=== PATIENT | male | born 1960 | race Caucasian/White ===

== ENCOUNTER 2017-08-06 13:11 | Inpatient (IN) | payer OTHER, SELFPAY ==
[2017-08-06 14:48] LABS: #Eosinphils 0.3 thou/uL (0.0-0.7); #Lymphocytes 1.1 thou/uL (1.20-3.40); #Monocytes 0.3 thou/uL (0.11-0.59); #Neutrophils 3.9 thou/uL (1.40-6.50); %Basophils 0.5 % (0.0-1.0); %Eosinophils 6.1 % (0.0-10.0); %Lymphocytes 19.6 % (21.0-51.0); %Monocytes 4.5 % (0.0-10.0); Hematocrit 30.7 % (42.0-52.0); Mean Platelet Volume 7.2 fL (7.4-10.4); White Blood Cell (WBC) Count 5.6 thou/uL (4.8-10.8)
[2017-08-06 15:11] LABS: ALT (SGPT) 14 U/L (8-55); AST (SGOT) 14 U/L (5-34); Alkaline Phosphatase 61 U/L (40-150); Anion Gap 13 mmol/L (10-20); BUN (Urea Nitrogen) 64 mg/dL (8.4-25.7); Bilirubin, Total 0.4 mg/dL (0.2-1.2); Calc. Creatinine Clearance 0 mL/min (70-130); Calcium 8.9 mg/dL (7.8-10.44); Carbon Dioxide 16 mmol/L (22-29); Chloride 111 mmol/L (98-107); Estimated GFR-MDRD 8; Globulin 3.5 g/dL (2.4-3.5); Protein, Total 6.4 g/dL (6.0-8.3)
--- NOTE | 2017-08-06 17:35 | RAD ---
CHEST 1 VIEW: Date: 08/06/17 COMPARISON: 11/28/16. HISTORY: Dialysis port placement. FINDINGS: Cardiomegaly. Lungs and pleural spaces are clear. No pneumothorax or osseous abnormalities. IMPRESSION: No acute cardiopulmonary process. POS: [facility]
--- NOTE | 2017-08-06 22:21 | CON ---
DATE OF CONSULTATION: 08/06/2017 NEPHROLOGY CONSULTATION REASON FOR CONSULTATION: Elevated creatinine. HISTORY OF PRESENT ILLNESS: This is a very pleasant 56-year-old gentleman, who presented to the [facility] with worsening renal failure. The patient had a creatinine of 2.3 on 11/13/2016, which has incr eased to 7.03 in July and 7.2 today. The patient denies no chest pain, orthopnea, or PND. The p atient was noted to have metabolic acidosis. PAST MEDICAL HISTORY: Significant for hypertension, anemia, diabetes mellitus, osteomyelitis, hernia surgery, knee surgery, ankle surgery. HOME MEDICATIONS: List reviewed. ALLERGIES: Reviewed. SOCIAL HISTORY: No alcohol or drug use. FAMILY HISTORY: Negative for ESRD. REVIEW OF SYSTEMS: A 15-point review of systems was performed and was negative except positives note d above. GENERAL: Weakness. HEAD: Headache. NECK: No swelling or lumps. NOSE: No epistaxis or discharge. EYES: No diplopia or pain. RESPIRATORY: Dyspnea. CARDIOVASCULAR: Chest pain. GASTR OINTESTINAL: Nausea. 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 MUSCULOSKELETAL: No joint pain. NEUROPSYCHIATIC SYSTEMS : No suicidal ideation. No ideation. SKIN: Denies any rash or ulcer. CONSTITUTIONAL: No fever o r chills. PHYSICAL EXAMINATION: GENERAL: Patient is awake, alert. VITAL SIGNS: Afebrile, pulse 75, breathing 16, blood pressure was 140/70. GENERAL APPEARANCE AND MENTAL STATUS: Fair. HEAD/NECK: Normocephalic. Atraumatic. EYES: EOMI. No deformity. EARS: Clear. No ulcers. NOSE: Intact. No lesions. MOUTH: Clear. No discharge. THROAT: Clear. No exudate. LUNGS: Clear. No crackles. CARDIAC: S1, S2. No rub. ABDOMEN: Benign. BS+. GENITALIA/RECTUM: Santamaria absent. BACK/EXTREMITIES: Edema 0+ ulcer. NEUROLOGICAL: Alert and motor intact. SKIN: Rash, bruise. LYMPHATICS: Edema, ulcer. LABORATORY: Creatinine 7.2, bicarbonate 16. ASSESSMENT AND RECOMMENDATIONS: 1. Acute kidney injury with chronic kidney disease, most likely end-stage renal disease. We will pl an dialysis tomorrow. 2. Anemia, stable. 3. Metabolic acidosis. Plan dialysis. 4. Anemia, start Epogen. Medications based on glomerular filtration rate are appropriate. We will plan for dialysis tomorrow.
[2017-08-06] MEDS ORDERED: Carvedilol 25 MG TAB PO SCH (22:30)
[2017-08-06] MEDS ORDERED: Amlodipine 5 MG TAB PO SCH (22:30)
[2017-08-06] MEDS ORDERED: hydrALAZINE 25 MG TAB PO SCH (22:30)
[2017-08-06] MEDS ORDERED: Acetaminophen 500 MG TAB ONE (22:40)
[2017-08-06] MEDS ORDERED: HYDROcodone/Acetaminophen 5/325 mg Tablet PO PRN (23:19)
[2017-08-06] MEDS ORDERED: Acetaminophen 325 MG TAB PO PRN (23:19)
--- NOTE | 2017-08-07 01:51 | HP ---
DATE OF ADMISSION: 08/06/2017 CHIEF COMPLAINT: Abnormal labs. HISTORY OF PRESENT ILLNESS: The patient is a 56-year-old male with past medical history of diabetes mellitus, type 2; hypertension; chronic kidney disease, stage 4 came to the ER due to worsening creat inine. The patient sees Dr. Osborne as an outpatient. Patient said he has on lower extremity swelli ng for the past few months and has on abdominal bloating also. Patient's creatinine was monitored as an outpatient, but the creatinine is getting worse, so patient was advised to come to the ER to init iate dialysis. Patient denies any chest pain, denies any trouble breathing, denies any cough, denies any sputum production, denies any nausea, denies any vomiting, denies any palpitations. Complains o f some intermittent dizziness. PAST MEDICAL HISTORY: As per HPI. PAST SURGICAL HISTORY: Bilateral knee surgery, right middle toe repair, hernia surgery. SOCIAL HISTORY: Denies smoking, denies alcohol, denies any illicit drugs. FAMILY HISTORY: Denies any heart problems. REVIEW OF SYSTEMS: Constitutional: Denies any fever, denies any chills. Positive for fatigue. Eye s: Denies any vision problem. Ears: Denies any hearing loss. Neck: Denies any neck pain. Cardio vascular System: Denies any chest pain. Respiratory System: Denies any cough, denies any sputum pr oduction. Gastrointestinal: Denies nausea, vomiting. Musculoskeletal: Positive for bilateral lowe r extremity swelling. Cranial nerve system: Positive for dizziness. Integument: Denies any rash. Psychiatric: Denies any depression, anxiety. All other review of systems are reviewed and are nega tive. PHYSICAL EXAMINATION: CONSTITUTIONAL/VITAL SIGNS: At the time of H&P performed, blood pressure is 130/70, afebrile, pulse ox 97% on room air. GENERAL: The patient appears comfortable. HEENT: Pupils equal, round, and reactive. Anterior nares patent. Nose normal. Ears normal. Teeth intact. Tongue is moist. NECK: Supple, no JVD. CARDIOVASCULAR SYSTEM: S1, S2 present. Regular rate and rhythm. No murmurs, no rubs, no gallops. RESPIRATORY SYSTEM: No wheezing, no rhonchi. Diminished at the bases. No accessory muscles seen. GASTROINTESTINAL: Abdomen is soft, distended, no guarding, no organomegaly, no masses felt. MUSCULOSKELETAL: Bilateral lower extremity, 3+ pitting edema present. CRANIAL NERVES SYSTEM: Cranial nerves intact. Follows commands. Strength intact, sensory intact. PSYCHIATRIC: Mood is appropriate at this time. INTEGUMENTARY: No rashes seen. LABORATORY DATA: At the time of H&P performed, sodium 135, potassium 4.8, chloride 111, CO2 of 16, B UN 64, creatinine is 7.21. White count 5.6, hemoglobin 10.3, platelet count is 212. Chest x-ray, no obvious infiltrates seen. ASSESSMENT AND PLAN: The patient is a 56-year-old male, 1. Chronic kidney disease, stage 4, now worsening creatinine. Plan to consult Nephrology to evaluat e the patient. Plan to keep patient n.p.o. after midnight for possible tunneled hemodialysis cathete r placement. We will monitor the patient closely. 2. Bilateral lower extremity edema. Plan to start patient on IV Lasix 60 q.12 hours. We will monit or creatinine closely with strict I's and O's. We will do bilateral lower extremity ultrasound to ru le out deep venous thrombosis. 3. History of hypertension, monitor blood pressures, continue home blood pressure medications. 4. Metabolic acidosis. Monitor bicarb closely. We will start patient on p.o. sodium bicarbonate. 5. Diabetes, type 2. Monitor blood sugars. We will do insulin-sliding scale. Case was discussed in detail with the patient at the bedside.
[2017-08-07] MEDS ORDERED: Heparin 5,000 UNITS/ML VIAL ONE ×2 (10:15→17:17)
--- NOTE | 2017-08-07 11:37 | ULT ---
BILATERAL UPPER EXTREMITY VASCULAR ULTRASOUND: Date: 08/07/17 HISTORY: 56-year-old male undergoing vascular assessment of the upper extremities for dialysis access planning . TECHNIQUE: Multiplanar Alaniz scale sonographic imaging of the vascular structures of bilateral upper extremities obtained with color flow and spectral analysis as detailed above. FINDINGS: The right internal jugular vein, subclavian vein, and axillary vein are patent. The left internal jug ular vein, subclavian vein, and axillary vein are patent. Bilateral cephalic and basilic veins are patent. VESSEL DIAMETER (mm) Right Brachial Artery 5.0 Right Radial Artery 2.4 Right Ulnar Artery 2.0 Left Brachial Artery 5.2 Left Radial Artery 2.6 Left Ulnar Artery 1.7 RIGHT CEPHALIC VEIN: Above Elbow Proximal 3.0 Above Elbow Mid 2.5 Above Elbow Distal 3.2 At Elbow 5.3 Below Elbow Proximal 2.7 Below Elbow Mid 2.9 Below Elbow Distal 1.4 RIGHT BASILIC VEIN: Above Elbow Proximal 3.9 Above Elbow Mid 4.5 Above Elbow Distal 3.9 At Elbow 3.0 Below Elbow Proximal 2.6 Below Elbow Mid 2.94 Below Elbow Distal 1.4 LEFT CEPHALIC VEIN: Above Elbow Proximal 3.2 Above Elbow Mid 2.8 Above Elbow Distal 2.7 At Elbow 3.1 Below Elbow Proximal 2.1 Below Elbow Mid 2.5 Below Elbow Distal 3.2 LEFT BASILIC VEIN: Above Elbow Proximal 1.1 Above Elbow Mid 3.2 Above Elbow Distal 3.0 At Elbow 2.5 Below Elbow Proximal 1.1 Below Elbow Mid 1.2 Below Elbow Distal 0.8 IMPRESSION: Vascular mapping of bilateral upper extremities as detailed above. POS: [facility]
--- NOTE | 2017-08-07 11:49 | PRG ---
DATE OF SERVICE: 08/07/2017 SUBJECTIVE: A 56-year-old gentleman being seen for end-stage renal disease. Patient denies any naus ea, vomiting or chest pain. PHYSICAL EXAMINATION: GENERAL: Patient is awake, alert. VITAL SIGNS: Afebrile, pulse 70, breathing at 16, blood pressure was 140/80. GENERAL APPEARANCE AND MENTAL STATUS: Fair. HEAD/NECK: Normocephalic. Atraumatic. EYES: EOMI. No deformity. EARS: Clear. No ulcers. NOSE: Intact. No lesions. MOUTH: Clear. No discharge. THROAT: Clear. No exudate. LUNGS: Clear. No crackles. CARDIAC: S1, S2. No rub. ABDOMEN: Benign. BS+. GENITALIA/RECTUM: Santamaria absent. BACK/EXTREMITIES: Lower extremities have 3+ edema. NEUROLOGICAL: Alert and motor intact. SKIN: Rash- Bruise- LYMPHATICS: Edema- Ulcer- ASSESSMENT AND RECOMMENDATIONS: 1. Stage 6 chronic kidney disease. We will plan dialysis. 2. Hypernatremia, stable. 3. Anemia, stable. 4. Metabolic acidosis. Plan dialysis. The patient will decide on PD versus hemo in the next few da ys. Today, he will get a tunneled catheter and dialysis will be initiated.
[2017-08-07] MEDS ORDERED: Nitroglycerin 2% Ointment 1 INCH/1 GM Packet ONE (12:18)
--- NOTE | 2017-08-07 12:51 | PDOC.PN ---
- Subjective Encounter Start Date: 08/07/17 Encounter Start Time: 10:40 Subjective: no chest pain, has sob -: is npo for HD cath today - Objective MAR Reviewed: Yes Result Diagrams: 08/06/17 14:23 08/06/17 14:23 Additional Labs: Accuchecks 08/07/17 12:29 POC Glucose 136 H Phys Exam - Physical Examination HEENT: PERRLA, moist MMs Neck: no JVD, supple Respiratory: no wheezing, no rales Cardiovascular: RRR, no significant murmur Gastrointestinal: soft, non-tender, positive bowel sounds Musculoskeletal: pulses present, edema present Neurological: non-focal, moves all 4 limbs Psychiatric: A&O x 3 Dx/Plan (1) ESRD (end stage renal disease) Code(s): N18.6 - END STAGE RENAL DISEASE Status: Acute Comment: will be initiated on HD (2) Metabolic acidosis Code(s): E87.2 - ACIDOSIS Status: Acute (3) H/O atrial flutter Code(s): Z86.79 - PERSONAL HISTORY OF OTHER DISEASES OF THE CIRCULATORY SYSTEM Status: Resolved (4) Chronic anemia Code(s): D64.9 - ANEMIA, UNSPECIFIED Status: Chronic (5) Anxiety and depression Code(s): F41.9 - ANXIETY DISORDER, UNSPECIFIED; F32.9 - MAJOR DEPRESSIVE DISORDER, SINGLE EPISODE, UNSPECIFIED Status: Chronic (6) Diabetes type 2, controlled Code(s): E11.9 - TYPE 2 DIABETES MELLITUS WITHOUT COMPLICATIONS Status: Chronic Qualifiers: Diabetes mellitus complication status: with unspecified complications Diabetes mellitus termite control representative insulin use: without fdc use Qualified Code( s): E11.8 - Type 2 diabetes mellitus with unspecified complications (7) Hypertension Code(s): I10 - ESSENTIAL (PRIMARY) HYPERTENSION Status: Chronic Qualifiers: Hypertension type: essential hypertension Qualified Code(s): I10 - Essential (primary) hypertension - Plan is on lasix 60mg q12h -: will be going for HD access shortly -: HD per nephrology advice -: had h/o LA thrombus which resolved in 2014, echo -: low alb sec to renal disease * . Review of Systems - Medications/Allergies Allergies/Adverse Reactions: Allergies Allergy/AdvReac Type Severity Reaction Status Date / Time No Known Allergies Allergy Verified 09/21/14 16:09 Medications: Current Medications Acetaminophen (Tylenol) 650 mg PO Q4H PRN PRN Reason: Headache/Fever or Pain Hydrocodone Bitart/Acetaminophen ([place] 5/325) 1 tab PO Q4H PRN PRN Reason: Moderate Pain (4-6) Furosemide (Lasix) 60 mg SLOW IVP 0600,1400 CANDI Heparin Sodium (Porcine) (Heparin) 5,000 units SC TID [facility] Ondansetron HCl (Zofran) 4 mg IVP Q6H PRN PRN Reason: Nausea/Vomiting
[2017-08-07] MEDS ORDERED: CEFAZOLIN/Water 2 GM/20 ML SYRINGE SLOW IVP SCH (13:15)
--- NOTE | 2017-08-07 14:12 | HP ---
HISTORY OF PRESENT ILLNESS: This is a 56-year-old male patient with longstanding diabetes and hypert ension followed by Dr. Osborne since November of this year. He had visited [facility] prior to thi s ER visit and discussed dialysis option and he is interested in a peritoneal dialysis. The patient presented of noting his deteriorating in renal function. Creatinine 7.2, GFR 8, carbon dioxide 16, s odium 135, hemoglobin 10.3. He has left hand IV ultrasound vein mapping reveal excellent veins in silviano th hands. 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 He lives in [place] . TOBACCO: None. ALCOHOL: None. ALLERGIES: None. MEDICATIONS: Apresoline 25 mg b.i.d., glyburide 5 mg a.m. with meals, Coreg 12.5 mg b.i.d., amlodipi ne 5 mg q.12 hours. PAST SURGICAL HISTORY: Right middle toe amputation, right knee surgery, right ankle surgery, left in guinal hernia repair as a child. He has never had a colonoscopy. PAST MEDICAL HISTORY: Hypertension, chronic kidney disease, diabetes mellitus, insulin-dependent typ e 2, probable history of CARMEL. He has had seen Dr. Elena in 2015. He had a cardiac ablation after treated for atrial thrombus. He had a ILDEFONSO that was normal subsequently. REVIEW OF SYSTEMS: Noncontributory otherwise. PHYSICAL EXAMINATION: VITAL SIGNS: 151 kilograms, 154/81, 61 16, 98.7 degrees. HEENT: Unremarkable. LUNGS: Clear to auscultation. CARDIAC: Regular rate and rhythm without murmur or gallop. ABDOMEN: Soft, nontender, no hernias evident. EXTREMITIES: Unremarkable. Good radial pulses. Good pedal pulses. ASSESSMENT AND PLAN: 1. End-stage renal disease. He need of dialysis access. I have discussed with him hemodialysis and peritoneal dialysis access. He desires peritoneal dialysis. We will plan laparoscopic peritoneal d ialysis catheter placement, possible omentopexy left arm primary fistula and hemodialysis catheter pl acement under general anesthesia. He understands the risks and benefits of surgery and consents. 2. Diabetes mellitus. 3. Hypertension. 4. End-stage renal disease.
[2017-08-07] MEDS ORDERED: Carvedilol 25 MG TAB PO SCH ×2 (15:45→21:00)
[2017-08-07 16:27] VITALS: BMI 32.1
[2017-08-07] MEDS ORDERED: CEFAZOLIN/Water 2 GM/20 ML SYRINGE ONE (16:42)
[2017-08-07] MEDS ORDERED: Propofol 200 MG/20 ML VIAL ONE (16:53)
[2017-08-07] MEDS ORDERED: Glycopyrrolate 0.2 MG/ML 5 ML SYRINGE ONE (16:53)
[2017-08-07] MEDS ORDERED: Ondansetron HCl/PF 4 MG/2 ML Vial ONE (16:53)
[2017-08-07] MEDS ORDERED: ePHEDrine/0.9% NaCl/PF SYRINGE 50 mg/10 ml ONE (16:53)
[2017-08-07] MEDS ORDERED: Lidocaine 1% PF 5 ML VIAL ONE (16:53)
[2017-08-07] MEDS ORDERED: Heparin 10,000 UNITS/ 10 ML VIAL ONE (16:53)
[2017-08-07] MEDS ORDERED: HumaLOG 300 UNITS/3 ML VIAL SC PRN (17:00)
[2017-08-07] MEDS ORDERED: FLU VACC QS2017-18 36 mo. & older 0.5 ML SYRINGE IM ONE (17:00)
[2017-08-07] MEDS ORDERED: Dextrose 50% Abboject 50 ML SYRINGE SLOW IVP PRN (17:00)
[2017-08-07] MEDS ORDERED: Dextrose 5% in Water 1,000 ML IV PRN (17:00)
[2017-08-07] MEDS ORDERED: Lidocaine 2% w/Epinephrine 1:200K 20 ML VIAL ONE (17:16)
[2017-08-07] MEDS ORDERED: Sodium Chloride 0.9% 0 ML ONE (17:17)
[2017-08-07] MEDS ORDERED: Bupivacaine/Epinephrine 0.25% 30 ML VIAL ONE (17:17)
[2017-08-07] MEDS ORDERED: Protamine Sulfate 250 MG/25 ML VIAL ONE (17:17)
[2017-08-07] MEDS ORDERED: Protamine Sulfate 50 MG/5 ML VIAL ONE (17:18)
[2017-08-07] MEDS ORDERED: Fentanyl 100 MCG/2 ML VIAL ONE ×2 (17:20→20:09)
[2017-08-07] MEDS: Furosemide 100 MG/10 ML VIAL SLOW IVP SCH (17:26)
[2017-08-07] MEDS: Heparin 5,000 UNITS/ML VIAL SC SCH ×2 (17:26→21:27)
[2017-08-07] MEDS ORDERED: Heparin 10,000 UNITS/1 ML VIAL ONE ×2 (18:11→18:53)
[2017-08-07] MEDS ORDERED: traMADol HCl 50 MG TAB PO PRN ×3 (19:57→21:05)
[2017-08-07] MEDS ORDERED: Acetaminophen 500 MG TAB PO PRN (19:57)
[2017-08-07] MEDS ORDERED: Ondansetron HCl/PF 4 MG/2 ML Vial IVP PRN (19:59)
[2017-08-07] MEDS ORDERED: Promethazine HCl 25 MG/ML VIAL SLOW IVP PRN (19:59)
[2017-08-07] MEDS ORDERED: Promethazine HCl 25 MG/ML VIAL IM PRN (19:59)
[2017-08-07] MEDS: Amlodipine 5 MG TAB PO SCH (21:58)
[2017-08-07] MEDS: hydrALAZINE 25 MG TAB PO SCH (21:59)
--- NOTE | 2017-08-07 22:40 | RAD ---
EXAM: ONE VIEW CHEST 08/07/17 COMPARISON: 08/06/17. HISTORY: Dialysis patient. Status post hemodialysis catheter placement and central line placement. FINDINGS: Interval placement of a left sided internal jugular central venous catheter with the distal tip proje cting over the right atrium. Interval placement of a right sided hemosplit dialysis catheter distal t ip projecting over the superior vena cava. No pneumothorax. Persistent cardiomegaly. Diminished lung volumes. Atelectasis in both lung bases. No pneumothorax. IMPRESSION: Lines as above. POS: [facility]
[2017-08-07] MEDS: traMADol HCl 50 MG TAB PO PRN (22:51)
[2017-08-08] MEDS: Acetaminophen 500 MG TAB PO PRN (02:11)
--- NOTE | 2017-08-08 02:32 | OP ---
DATE OF PROCEDURE: 08/07/2017 PREOPERATIVE DIAGNOSIS: End-stage renal disease. POSTOPERATIVE DIAGNOSIS: End-stage renal disease. PROCEDURES: Right IJ cuffed-tunnel hemodialysis catheter, angiodynamics precurved. Left internal ju gular vein central line triple-lumen. Ultrasound fluoroscopy used for placement of both. Laparoscop ic peritoneal dialysis catheter with omentopexy. Left Vivi fistula. Cephalic vein outflow calibra mana to a 3.5 mm coronary dilator. Radial arteriosclerotic, but patent. SURGEON: Dr. Tommy Fry ANESTHESIA: General. Local 0.25% Marcaine with epinephrine, 15 mL, mixed with 1% Xylocaine with epi nephrine, 30 mL. PROCEDURE IN DETAIL: Patient was taken to the operating room, where under general anesthesia, neck, chest, abdomen, and left upper extremity clipped of hair, prepared with chloraprep, draped in routine fashion. Local anesthetic mixture infiltrated into skin and subcutaneous tissue about all surgical sites. Using ultrasound guidance, the right and left internal jugular vein cannulated with trocar ca theter and J-wire threaded. Trocar catheter was removed. Skin incised and enlarged sharply at the J -wire entrance site and into skin of the neck. Stab incision made over the right chest infraclavicul ar laterally. Using the tunneling device, precurved angiodynamics cuffed-tunnel hemodialysis cathete r tunneled between the two incisions, placing the fabric cuff beneath the skin exit site on the right and bring the catheter out the incision next to the J-wire. Smaller and medium-sized dilators place d over the J-wire into the internal jugular vein removed. Dilator and pull-away sheath placed over t he J-wire in superior vena cava and dilator and J-wire removed. Catheter placed with pull-away sheat h and pull-away sheath removed. Platysma approximated with 4-0 Monocryl, skin with subdermal 4-0 Mon ocryl. Each port of the hemodialysis catheter aspirated blood, flushed with injectable saline, and h eparinized saline solution 1000 units heparin per mL indicated volume of the port. Dermabond and maye rile dressings applied. Catheter had been secured with 3-0 nylon suture and Biopatch applied. On the left side, Seldinger technique used to place a left internal jugular vein triple-lumen cathete r, removing the J-wire, securing the catheter with 2 interrupted sutures of 3-0 nylon. Biopatch ster ile dressing applied. Each port aspirated blood and flushed with saline solution. Sterile dressing applied. My gloves were changed. Local anesthetic infiltrated into skin and subcutaneous tissue about the ope rative site, about the laparoscopic peritoneal dialysis catheter is bilateral, far lateral subcostal incisions made and pneumoperitoneum was obtained with the Veress needle, replacing it with a 5 port. Video laparoscope inserted. Contralateral subcostal 5 mm port placed under laparoscopic visualizati on. An incision was made at the planned exit site in the left lower quadrant and a counter incision made above the umbilicus just paramedian and carried down through the skin and subcutaneous tissue an d 8 mm trocar catheter placed under laparoscopic visualization through the subcutaneous tissue direct caudally within the rectus sheath visualized laparoscopically, penetrating the abdominal wall inferi emily. The double cuffed pigtail peritoneal dialysis catheter placed through this port site and the i nternal cuff placed in the rectus sheath as the port was removed. A [place] dissector was then plac ed with the planned exit site slightly anterior and lateral to the counter incision in the left lower quadrant and brought out through a counterincision, grasping the catheter and pulled it through the tunnel, placing the external cuff beneath the skin exit site. Subcutaneous tissues approximated with 3-0 Monocryl, skin with subdermal 4-0 Monocryl. Catheter flushed with heparinized saline solution 1 000 units heparin per mL, 10 mL, and cap placed. Peritoneal dialysis catheter noted to be relied dep endently in the pelvis optimal position. Omentopexy undertaken as omentum was reached into the pelvi s, an 0 Vicryl suture using a GraNee needle transabdominal fixation sutures were applied fixing the o mentum to the upper abdomen. Pneumoperitoneum evacuated. All instruments removed and all skin incis ions approximated with interrupted subdermal 4-0 Monocryl and DermaGlue applied. Sterile dressings a pplied for the laparoscopic peritoneal dialysis catheter. Incision made in left wrist longitudinally between the radial artery and cephalic vein, carried down through the skin and subcutaneous tissue and the cephalic vein dissected free and stump on the hand s sheila ligated with 3-0 silk tie. It was mobilized dividing branch between 4-0 silk ties and clips. Ve in spatulated and interrogated with coronary dilators, passing coronary dilators from a 2 mm coronary dilator to a 3.5 mm coronary unobstructed throughout the length of the cephalic vein. Patient given 6000 units of heparin intravenously by Anesthesia. Radial artery dissected free. Small branches di vided between clips and 4-0 silk ties and vascular clamps controlled the radial artery proximally and distally. Longitudinal arteriotomy made sharply and elongated with the Mendez scissors and according ly the cephalic vein spatulated for the anastomosis, which was created with continuous suture of 6-0 Prolene, completing the anastomosis, releasing the vascular clamps noting good flow into the cephalic vein interrogated by Doppler with good outflow signals. The cephalic vein was dissected free, so th at it had a good lie and flaps dissected free laterally to accommodate this. Hemostasis ensured. Betancourt rgicel applied. Patient was given protamine 50 mg intravenously by Anesthesia. Good hemostasis note d. Subcutaneous tissues approximated with 3-0 Monocryl, skin with subdermal 4-0 Monocryl and DermaGl ue applied. The patient tolerated the procedure well.
[2017-08-08] MEDS: Ondansetron HCl/PF 4 MG/2 ML Vial IVP PRN ×3 (05:18→17:51)
[2017-08-08] MEDS: Furosemide 100 MG/10 ML VIAL SLOW IVP SCH ×2 (05:18→16:02)
[2017-08-08] MEDS: traMADol HCl 50 MG TAB PO PRN ×3 (05:18→21:02)
[2017-08-08 06:16] LABS: #Eosinphils 0.3 thou/uL (0.0-0.7); #Lymphocytes 1.2 thou/uL (1.20-3.40); #Monocytes 0.4 thou/uL (0.11-0.59); #Neutrophils 3.8 thou/uL (1.40-6.50); %Basophils 0.6 % (0.0-1.0); %Eosinophils 5.5 % (0.0-10.0); %Lymphocytes 21.2 % (21.0-51.0); Anion Gap 13 mmol/L (10-20); BUN (Urea Nitrogen) 65 mg/dL (8.4-25.7); Calc. Creatinine Clearance 17 mL/min (70-130); Carbon Dioxide 17 mmol/L (22-29); Chloride 112 mmol/L (98-107); Estimated GFR-MDRD 8; Hematocrit 28.4 % (42.0-52.0); Mean Platelet Volume 7.5 fL (7.4-10.4); Red Blood Cell (RBC) Count 2.91 mill/uL (4.70-6.10); White Blood Cell (WBC) Count 5.7 thou/uL (4.8-10.8)
[2017-08-08 06:17] LABS: ALT (SGPT) 12 U/L (8-55); AST (SGOT) 11 U/L (5-34); Alkaline Phosphatase 48 U/L (40-150); BUN/Creatinine Ratio 9.03; Bilirubin, Total 0.3 mg/dL (0.2-1.2); Calcium 8.6 mg/dL (7.8-10.44); Globulin 3.1 g/dL (2.4-3.5); Phosphorus 7.1 mg/dL (2.3-4.7); Protein, Total 5.5 g/dL (6.0-8.3)
[2017-08-08] MEDS ORDERED: Heparin 10,000 UNITS/ 10 ML VIAL ONE (07:18)
[2017-08-08] MEDS: Carvedilol 3.125 MG TAB PO SCH ×2 (08:02→17:51)
[2017-08-08] MEDS ORDERED: Polyethylene Glycol 3350 17 GM Packet PO SCH (09:00)
[2017-08-08] MEDS: hydrALAZINE 25 MG TAB PO SCH ×3 (09:05→20:58)
[2017-08-08] MEDS: Polyethylene Glycol 3350 17 GM Packet PO SCH (09:06)
[2017-08-08] MEDS: Heparin 5,000 UNITS/ML VIAL SC SCH ×3 (09:06→21:06)
[2017-08-08] MEDS: Amlodipine 5 MG TAB PO SCH ×2 (09:06→20:59)
--- NOTE | 2017-08-08 10:42 | PDOC.PN ---
- Subjective Encounter Start Date: 08/08/17 Encounter Start Time: 08:15 Subjective: no sob, has pain due to multiple procedures done yesterday - Objective MAR Reviewed: Yes Vital Signs & Weight: Vital Signs (12 hours) Temp Pulse Resp BP Pulse Ox 08/08/17 09:06 58 L 08/08/17 08:00 98.3 F 58 L 16 08/08/17 07:30 98.3 F 58 L 16 179/82 H 95 08/08/17 05:05 98.5 F 60 20 138/71 93 L 08/07/17 23:08 97.3 F L 52 L 16 164/82 H 93 L Weight Weight 230 lb 9 oz I&O: 08/07/17 08/08/17 08/09/17 06:59 06:59 06:59 Intake Total 488 Output Total 50 Balance 438 Result Diagrams: 08/08/17 05:20 08/08/17 05:20 Additional Labs: Accuchecks 08/08/17 08/07/17 08/07/17 05:26 21:13 12:29 POC Glucose 113 H 143 H 136 H Phys Exam - Physical Examination HEENT: PERRLA, moist MMs Neck: no JVD, supple has tunneled HD cath, central line Respiratory: no wheezing, no rales Cardiovascular: RRR, no significant murmur Gastrointestinal: soft, non-tender, positive bowel sounds PD cath+ Musculoskeletal: pulses present, edema present Neurological: non-focal, moves all 4 limbs left UE fistula+ Psychiatric: A&O x 3 Dx/Plan (1) ESRD (end stage renal disease) Code(s): N18.6 - END STAGE RENAL DISEASE Status: Acute Comment: will be initiated on HD (2) Metabolic acidosis Code(s): E87.2 - ACIDOSIS Status: Acute (3) H/O atrial flutter Code(s): Z86.79 - PERSONAL HISTORY OF OTHER DISEASES OF THE CIRCULATORY SYSTEM Status: Resolved (4) Chronic anemia Code(s): D64.9 - ANEMIA, UNSPECIFIED Status: Chronic (5) Anxiety and depression Code(s): F41.9 - ANXIETY DISORDER, UNSPECIFIED; F32.9 - MAJOR DEPRESSIVE DISORDER, SINGLE EPISODE, UNSPECIFIED Status: Chronic (6) Diabetes type 2, controlled Code(s): E11.9 - TYPE 2 DIABETES MELLITUS WITHOUT COMPLICATIONS Status: Chronic Qualifiers: Diabetes mellitus complication detail: with chronic kidney disease Diabetes mellitus group home insulin use: without group home use Chronic kidney disease stage: stage 5, not on chronic dialysis (7) Hypertension Code(s): I10 - ESSENTIAL (PRIMARY) HYPERTENSION Status: Chronic Qualifiers: Hypertension type: essential hypertension Qualified Code(s): I10 - Essential (primary) hypertension - Plan will optimize meds for htn, is bradycardic on current coreg dose -: to start HD per nephrology advice -: Had multiple access procedures done for dialysis -: reduce coreg to 3.125mg bid, on lasix 60mg q12h, hydralazine tid -: alb is 2.4 due to renal disease * . Review of Systems - Medications/Allergies Allergies/Adverse Reactions: Allergies Allergy/AdvReac Type Severity Reaction Status Date / Time No Known Allergies Allergy Verified 09/21/14 16:09 Medications: Current Medications Acetaminophen (Tylenol) 650 mg PO Q4H PRN PRN Reason: Headache/Fever or Pain Acetaminophen (Tylenol) 1,000 mg PO Q6H PRN PRN Reason: Moderate to Severe Pain (6-10) Last Admin: 08/08/17 02:11 Dose: 1,000 mg Amlodipine Besylate (Norvasc) 5 mg PO Q12HR [facility] Last Admin: 08/08/17 09:06 Dose: 5 mg Carvedilol (Coreg) 3.125 mg PO BID-[facility] Last Admin: 08/08/17 08:02 Dose: 3.125 mg Cefazolin Sodium (Ancef) 2 gm SLOW IVP WILLCALL [facility] Stop: 08/08/17 13:16 Dextrose/Water (Dextrose 50%) 25 gm SLOW IVP PRN PRN PRN Reason: Hypoglycemia Furosemide (Lasix) 60 mg SLOW IVP 0600,1400 [facility] Last Admin: 08/08/17 05:18 Dose: 60 mg Glucagon (Glucagon) 1 mg IM PRN PRN PRN Reason: Hypoglycemia Heparin Sodium (Porcine) (Heparin) 5,000 units SC TID [facility] Last Admin: 08/08/17 09:06 Dose: 5,000 units Hydralazine HCl (Apresoline) 50 mg PO TID [facility] Last Admin: 08/08/17 09:05 Dose: 50 mg Dextrose/Water (D5w) 1,000 mls @ 0 mls/hr IV .Q0M PRN; As Directed PRN Reason: Hypoglycemia Insulin Human Lispro (Humalog) 0 units SC .MODERATE SLIDING SC PRN PRN Reason: Moderate Correctional Scale Ondansetron HCl (Zofran) 4 mg IVP Q6H PRN PRN Reason: Nausea/Vomiting Last Admin: 08/08/17 05:18 Dose: 4 mg Polyethylene Glycol (Miralax) 17 gm PO DAILY [facility] Last Admin: 08/08/17 09:06 Dose: Not Given Tramadol HCl (Ultram) 50 mg PO Q6H PRN PRN Reason: Mild-Moderate Pain (1-5) Tramadol HCl (Ultram) 100 mg PO Q6H PRN PRN Reason: Moderate to Severe Pain (6-10) Last Admin: 08/08/17 05:18 Dose: 100 mg Tuberculin PPD (Aplisol) 0.1 ml I-DERMAL ASDIR [facility] Stop: 08/11/17 10:46
[2017-08-08] MEDS ORDERED: Tuberculin PPD 0.1 ML VIAL I-DERMAL SCH (10:45)
--- NOTE | 2017-08-08 12:10 | PRG ---
DATE OF SERVICE: 08/06/2017 SUBJECTIVE: A 56-year-old gentleman being seen for end-stage renal disease. The patient denies any nausea, vomiting or chest pain. PHYSICAL EXAMINATION: GENERAL: Patient is awake, alert. VITAL SIGNS: Afebrile, pulse 58, breathing at 16, blood pressure 138/71. HEAD/NECK: Normocephalic. Atraumatic. EYES: EOMI. No deformity. EARS: Clear. No ulcers. NOSE: Intact. No lesions. MOUTH: Clear. No discharge. THROAT: Clear. No exudate. LUNGS: Clear. No crackles. CARDIAC: S1, S2. No rub. ABDOMEN: Benign. BS+. GENITALIA/RECTUM: Santamaria absent. BACK/EXTREMITIES: Edema 0+ Ulcer- NEUROLOGICAL: Alert and motor intact. SKIN: Rash- Bruise- LYMPHATICS: Edema- Ulcer- LABORATORY DATA: Show hemoglobin 9.4, creatinine 7.2. ASSESSMENT AND RECOMMENDATIONS: 1. Stage 6 chronic kidney disease. Continue dialysis today. Access, the patient has a fistula as w ell as a tunneled dialysis catheter as well as a PD catheter. We will setup the patient for peritone al dialysis as an outpatient and continue hemodialysis. 2. Anemia, stable. 3. Medications based on glomerular filtration rate are appropriate.
[2017-08-08] MEDS ORDERED: Epoetin (ESRD) 10,000 UNITS/ML VIAL SC SCH (13:00)
--- NOTE | 2017-08-08 14:36 | PRG ---
DATE OF SERVICE: 08/08/2017 HISTORY OF PRESENT ILLNESS: Mr. Castillo is doing well after placement of right IJ cuffed tunnel hem odialysis catheter, left IJ central line, left wrist Vivi fistula, laparoscopic peritoneal dialysis catheter, and omentopexy. Patient's pain is well controlled on tramadol. He has a good thrill and bruit in his left Vivi fistula. Wound looks good. Abdomen is soft and nontender. The patient is doing well post-dialysis access surgery. I would recommend removal of his left IJ central line prior to discharge. We will leave that in for IV access and blood draws during this hospitalization to pr otect his veins. We would plan on leaving the dressing over his peritoneal dialysis catheter in his left lower abdomen. He may shower. We would ask him to make an appointment to [facility] peritoneal magaly lysis nurse as an outpatient 3-7 days postoperatively to change the dressing in his left lower abdome n and to start peritoneal dialysis training. Meanwhile leave the dressing on and he may shower. We would encourage him to exercise his left arm to encourage maturation of left Vivi fistula. The brian ient should follow up in my office in 3-6 weeks. Please call if needed.
[2017-08-09] MEDS: Acetaminophen 500 MG TAB PO PRN (00:52)
[2017-08-09] MEDS: Ondansetron HCl/PF 4 MG/2 ML Vial IVP PRN ×2 (00:52→06:15)
[2017-08-09] MEDS: Furosemide 100 MG/10 ML VIAL SLOW IVP SCH ×2 (06:14→15:28)
[2017-08-09] MEDS: Carvedilol 3.125 MG TAB PO SCH ×3 (11:25→17:27)
[2017-08-09] MEDS: Amlodipine 5 MG TAB PO SCH ×4 (11:25→20:54)
[2017-08-09] MEDS: Heparin 5,000 UNITS/ML VIAL SC SCH ×4 (11:25→20:55)
[2017-08-09] MEDS: Polyethylene Glycol 3350 17 GM Packet PO SCH (11:26)
[2017-08-09] MEDS: hydrALAZINE 25 MG TAB PO SCH ×4 (11:26→20:53)
[2017-08-09] MEDS ORDERED: Promethazine HCl 25 MG/ML VIAL SLOW IVP SCH (12:00)
[2017-08-09] MEDS ORDERED: Promethazine HCl 12.5 MG in Sodium Chloride 0.9% 50 ML IVPB SCH (12:30)
[2017-08-09 12:39] LABS: #Eosinphils 0.4 thou/uL (0.0-0.7); #Lymphocytes 1.1 thou/uL (1.20-3.40); #Monocytes 0.5 thou/uL (0.11-0.59); #Neutrophils 3.2 thou/uL (1.40-6.50); %Basophils 0.2 % (0.0-1.0); %Eosinophils 7.9 % (0.0-10.0); %Lymphocytes 20.5 % (21.0-51.0); %Monocytes 8.7 % (0.0-10.0); Hematocrit 31.6 % (42.0-52.0); Mean Platelet Volume 7.1 fL (7.4-10.4); Red Blood Cell (RBC) Count 3.28 mill/uL (4.70-6.10); White Blood Cell (WBC) Count 5.2 thou/uL (4.8-10.8)
--- NOTE | 2017-08-09 12:44 | PDOC.PN ---
- Subjective Encounter Start Date: 08/09/17 Encounter Start Time: 09:30 Subjective: c/o nausea, no sob -: getting HD - Objective MAR Reviewed: Yes Vital Signs & Weight: Vital Signs (12 hours) Temp Pulse Resp BP Pulse Ox 08/09/17 12:30 65 08/09/17 12:23 62 08/09/17 12:00 97.6 F 65 16 205/90 H 96 08/09/17 08:00 98.3 F 62 18 92 L 08/09/17 06:48 98.3 F 62 18 119/65 92 L Weight Weight 230 lb 9 oz I&O: 08/08/17 08/09/17 08/10/17 06:59 06:59 06:59 Intake Total 488 Output Total 50 175 Balance 438 -175 Result Diagrams: 08/09/17 12:25 08/08/17 05:20 Additional Labs: Accuchecks 08/09/17 08/09/17 08/08/17 06:06 00:29 17:59 POC Glucose 126 H 111 H 105 Phys Exam - Physical Examination HEENT: PERRLA, moist MMs Neck: no JVD, supple Respiratory: no wheezing, no rales Cardiovascular: RRR, no significant murmur Gastrointestinal: soft, non-tender, positive bowel sounds PD cath+ Musculoskeletal: no edema, pulses present Neurological: non-focal, moves all 4 limbs Psychiatric: A&O x 3 Dx/Plan (1) ESRD (end stage renal disease) Code(s): N18.6 - END STAGE RENAL DISEASE Status: Acute Comment: initiated on HD (2) Metabolic acidosis Code(s): E87.2 - ACIDOSIS Status: Acute (3) H/O atrial flutter Code(s): Z86.79 - PERSONAL HISTORY OF OTHER DISEASES OF THE CIRCULATORY SYSTEM Status: Resolved (4) Chronic anemia Code(s): D64.9 - ANEMIA, UNSPECIFIED Status: Chronic (5) Anxiety and depression Code(s): F41.9 - ANXIETY DISORDER, UNSPECIFIED; F32.9 - MAJOR DEPRESSIVE DISORDER, SINGLE EPISODE, UNSPECIFIED Status: Chronic (6) Diabetes type 2, controlled Code(s): E11.9 - TYPE 2 DIABETES MELLITUS WITHOUT COMPLICATIONS Status: Chronic Qualifiers: Diabetes mellitus complication detail: with chronic kidney disease Diabetes mellitus senior care insulin use: without intermediate project manager use Chronic kidney disease stage: stage 5, not on chronic dialysis (7) Hypertension Code(s): I10 - ESSENTIAL (PRIMARY) HYPERTENSION Status: Chronic Qualifiers: Hypertension type: essential hypertension Qualified Code(s): I10 - Essential (primary) hypertension - Plan tolerating HD, had his 2nd session today -: awaiting outpt HD chair, is on coreg, hydralazine and norvasc -: will have outpt coaching sessions for PD education -: one dose phenergan to see his nausea resolve -: dc plan per nephro/gen surg advice * . Review of Systems - Medications/Allergies Allergies/Adverse Reactions: Allergies Allergy/AdvReac Type Severity Reaction Status Date / Time No Known Allergies Allergy Verified 09/21/14 16:09 Medications: Current Medications Acetaminophen (Tylenol) 650 mg PO Q4H PRN PRN Reason: Headache/Fever or Pain Acetaminophen (Tylenol) 1,000 mg PO Q6H PRN PRN Reason: Moderate to Severe Pain (6-10) Last Admin: 08/09/17 00:52 Dose: 1,000 mg Amlodipine Besylate (Norvasc) 5 mg PO Q12HR [facility] Last Admin: 08/09/17 12:30 Dose: Not Given Carvedilol (Coreg) 3.125 mg PO BID-WM [facility] Last Admin: 08/09/17 12:28 Dose: 3.125 mg Dextrose/Water (Dextrose 50%) 25 gm SLOW IVP PRN PRN PRN Reason: Hypoglycemia Epoetin Lakhwinder (Procrit) 10,000 units SC Q7D [facility] Last Admin: 08/08/17 12:51 Dose: 10,000 units Furosemide (Lasix) 60 mg SLOW IVP 0600,1400 [facility] Last Admin: 08/09/17 06:14 Dose: 60 mg Glucagon (Glucagon) 1 mg IM PRN PRN PRN Reason: Hypoglycemia Heparin Sodium (Porcine) (Heparin) 5,000 units SC TID [facility] Last Admin: 08/09/17 11:27 Dose: Not Given Hydralazine HCl (Apresoline) 50 mg PO TID [facility] Last Admin: 08/09/17 12:23 Dose: 50 mg Dextrose/Water (D5w) 1,000 mls @ 0 mls/hr IV .Q0M PRN; As Directed PRN Reason: Hypoglycemia Promethazine HCl 12.5 mg/ (Sodium Chloride) 50.5 mls @ 151.5 mls/hr IVPB NOW [facility] Stop: 08/09/17 14:30 Ondansetron HCl (Zofran) 4 mg IVP Q6H PRN PRN Reason: Nausea/Vomiting Last Admin: 08/09/17 06:15 Dose: 4 mg Polyethylene Glycol (Miralax) 17 gm PO DAILY [facility] Last Admin: 08/09/17 11:26 Dose: Not Given Tramadol HCl (Ultram) 50 mg PO Q6H PRN PRN Reason: Mild-Moderate Pain (1-5) Tramadol HCl (Ultram) 100 mg PO Q6H PRN PRN Reason: Moderate to Severe Pain (6-10) Last Admin: 08/08/17 21:02 Dose: 100 mg Tuberculin PPD (Aplisol) 0.1 ml I-DERMAL ASDIR [facility] Stop: 08/11/17 10:46
[2017-08-09 13:00] LABS: Anion Gap 15 mmol/L (10-20); BUN (Urea Nitrogen) 33 mg/dL (8.4-25.7); Calc. Creatinine Clearance 26 mL/min (70-130); Calcium 8.9 mg/dL (7.8-10.44); Carbon Dioxide 25 mmol/L (22-29); Chloride 103 mmol/L (98-107); Estimated GFR-MDRD 13
--- NOTE | 2017-08-09 13:52 | PRG ---
DATE OF SERVICE: 08/09/2017 SUBJECTIVE: A 56-year-old gentleman with a history of end-stage renal disease, complaints of nausea, vomiting, and left-sided abdominal pain. The patient denies fever or chills. PHYSICAL EXAMINATION: GENERAL: The patient is awake, alert. VITAL SIGNS: Afebrile, pulse 62, breathing at 16, blood pressure 119/65 GENERAL APPEARANCE AND MENTAL STATUS: Fair. HEAD/NECK: Normocephalic. Atraumatic. EYES: EOMI. No deformity. EARS: Clear. No ulcers. NOSE: Intact. No lesions. MOUTH: Clear. No discharge. THROAT: Clear. No exudate. LUNGS: Clear. No crackles. CARDIAC: S1, S2. No rub. ABDOMEN: Shows no tenderness or guarding on the right side, mild tenderness on the left side. No guarding or rigidity. Bowel sounds are positive. GENITALIA/RECTUM: Santamaria absent. BACK/EXTREMITIES: Edema 0+ Ulcer- NEUROLOGICAL: Alert and motor intact. SKIN: Rash- Bruise- LYMPHATICS: Edema- Ulcer- LABORATORY DATA: Hemoglobin 9.4, potassium 4.6. ASSESSMENT AND RECOMMENDATIONS: 1. Stage 6 chronic kidney disease. The patient had hemodialysis today. Abdominal pain. Consult surgery. We will recheck labs today. 2. Anemia, stable. 3. Metabolic acidosis, stable. 4. Hyperkalemia, stable. Discharge planning is in progress. [facility]
[2017-08-09] MEDS: traMADol HCl 50 MG TAB PO PRN (23:27)
[2017-08-10] MEDS: Acetaminophen 500 MG TAB PO PRN (05:52)
[2017-08-10] MEDS: Furosemide 100 MG/10 ML VIAL SLOW IVP SCH (05:55)
[2017-08-10 06:43] LABS: ALT (SGPT) Less than 7 U/L (8-55); AST (SGOT) 13 U/L (5-34); Alkaline Phosphatase 55 U/L (40-150); Anion Gap 15 mmol/L (10-20); BUN (Urea Nitrogen) 40 mg/dL (8.4-25.7); Bilirubin, Total 0.3 mg/dL (0.2-1.2); Calc. Creatinine Clearance 21 mL/min (70-130); Calcium 8.4 mg/dL (7.8-10.44); Carbon Dioxide 25 mmol/L (22-29); Chloride 100 mmol/L (98-107); Estimated GFR-MDRD 11; Globulin 3.3 g/dL (2.4-3.5); Lipase 13 U/L (8-78); Protein, Total 5.8 g/dL (6.0-8.3)
[2017-08-10 06:51] LABS: #Eosinphils 0.6 thou/uL (0.0-0.7); #Lymphocytes 1.3 thou/uL (1.20-3.40); #Monocytes 0.4 thou/uL (0.11-0.59); #Neutrophils 3.6 thou/uL (1.40-6.50); %Basophils 0.6 % (0.0-1.0); %Eosinophils 10.3 % (0.0-10.0); %Lymphocytes 22.4 % (21.0-51.0); %Monocytes 7.3 % (0.0-10.0); Hematocrit 31.2 % (42.0-52.0); Mean Platelet Volume 7.4 fL (7.4-10.4); Red Blood Cell (RBC) Count 3.21 mill/uL (4.70-6.10)
[2017-08-10] MEDS: Heparin 5,000 UNITS/ML VIAL SC SCH (08:36)
[2017-08-10] MEDS: Polyethylene Glycol 3350 17 GM Packet PO SCH (08:36)
[2017-08-10] MEDS: Amlodipine 5 MG TAB PO SCH (08:37)
[2017-08-10] MEDS: hydrALAZINE 25 MG TAB PO SCH (08:37)
[2017-08-10] MEDS: Carvedilol 3.125 MG TAB PO SCH (08:37)
[2017-08-10 08:43] VITALS: BP 170/77; TEMP 98.1
[2017-08-10] MEDS ORDERED: Lisinopril 5 MG TAB PO SCH (09:45)
[2017-08-10] MEDS ORDERED: Lisinopril 10 MG TAB PO SCH (09:45)
--- NOTE | 2017-08-10 19:42 | PRG ---
DATE OF SERVICE: 08/10/2017 SUBJECTIVE: This 56-year-old gentleman being seen for end-stage renal disease. The patient denies a ny nausea, vomiting or chest pain. PHYSICAL EXAMINATION: GENERAL: Patient is awake, alert. VITAL SIGNS: Afebrile, pulse 60, breathing at 16, blood pressure 117/77. GENERAL APPEARANCE AND MENTAL STATUS: Fair. HEAD/NECK: Normocephalic. Atraumatic. EYES: EOMI. No deformity. EARS: Clear. No ulcers. NOSE: Intact. No lesions. MOUTH: Clear. No discharge. THROAT: Clear. No exudate. LUNGS: Clear. No crackles. CARDIAC: S1, S2. No rub. ABDOMEN: Benign. BS+. GENITALIA/RECTUM: Santamaria absent. BACK/EXTREMITIES: Edema 0+ Ulcer- NEUROLOGICAL: Alert and motor intact. SKIN: Rash- Bruise- LYMPHATICS: Edema- Ulcer- LABORATORY: Hemoglobin 9.9. ASSESSMENT AND RECOMMENDATIONS: 1. Stage 6 chronic kidney disease, continue hemodialysis. 2. Hypertension, stable. 3. Anemia, stable. 4. Medications based on GFR are appropriate.
--- NOTE | 2017-08-10 20:30 | DIS ---
DATE OF ADMISSION: 08/06/2017 DATE OF DISCHARGE: 08/10/2017 CONDITION AT THE TIME OF DISCHARGE: Stable and improved. DISCHARGE DIAGNOSES: 1. Acute on chronic kidney disease with worsening renal function, status post initiation of hemodial ysis. 2. Metabolic acidosis secondary to #1. 3. History of atrial flutter. 4. Chronic anemia of chronic kidney disease. 5. Anxiety and depression. 6. Type 2 diabetes mellitus. 7. Hypertension. DISCHARGE MEDICATIONS: Lasix 40 mg daily, lisinopril 5 mg daily, Coreg 3.125 mg p.o. b.i.d., minoxid il 10 mg b.i.d., hydralazine 50 mg b.i.d., Norvasc 5 mg p.o. b.i.d., tramadol as needed for pain and Tylenol as needed for pain, hydralazine 50 mg p.o. t.i.d. PRIMARY CARE PHYSICIAN: Rik Calderon M.D. PRIMARY RATING EXAMINER: Dr. Bonds. PROCEDURES IN THE HOSPITAL: Include, 1. Placement and removal of the left IJ central line. 2. Placement of a right IJ tunneled hemodialysis catheter. 3. Left wrist fistula. 4. PD catheter placement. CONSULTATION INHOUSE: Include, 1. Nephrology. 2. General Surgery, Dr. Fry. HISTORY OF PRESENT ILLNESS: Mr. 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 He has also noticed abdomi nal swelling and lower extremity swelling. He was sent to the emergency room to get admitted for ini tiation of dialysis. He was otherwise hemodynamically stable upon presentation. Please see admissio n history and physical for further details. Nephrology and Neurosurgery was consulted. He was start ed on IV Lasix b.i.d. for bilateral lower extremity swelling as he still make some urine. He was fou nd to have metabolic acidosis due to acute on chronic renal insufficiency. His creatinine was 7.21 w ith GFR of 8 upon presentation. HOSPITAL COURSE: He was seen by Dr. Fry and underwent a marking ultrasound and eventual placement of a left wrist fistula along with the PD catheter and right IJ tunneled catheter. I attempted his left IJ central line was done for access. He was initiated on hemodialysis and tolerated the procedu re very well. He was also followed up by his box finisher, Dr. Bonds in house. Eventually hemodialys is chair was arranged for him as an outpatient and he was discharged home with plans for outpatient d ialysis for now with the possibility of peritoneal dialysis to be started at a later date. He was seen and examined prior to discharge. PHYSICAL EXAMINATION: Include, VITAL SIGNS: Temperature 98.1, pulse of 66, blood pressure 170/77, respirations 18, saturating 96% o n room air. GENERAL: No acute distress. Awake and alert, oriented x3. CHEST: Clear to auscultation without any wheezing, rales or rhonchi. Rate and rhythm is regular wit hout any murmur, rubs, or gallops. EXTREMITIES: Some bilateral lower extremity swelling remains. LABORATORY DATA: Serum chemistries; CBC shows hemoglobin of 9.9 with hematocrit of 31.2. Serum chem istries show GFR is improved to 11 with creatinine of 5.60, BUN 40. Hepatitis panel was negative. Because of persistent hypertension and chronic kidney disease: He was started on OMER inhibitors. He was provided prescription for the new medications. At this time, the patient is not started any pot assium supplements, but would follow up with every other day renal function and electrolyte managemen t as per the dialysis.
[2017-08-11] MEDS ORDERED: Lisinopril 5 MG TAB PO SCH (09:00)
[2017-08-11] MEDS ORDERED: Furosemide 100 MG/10 ML VIAL SLOW IVP SCH (09:00)
== END 2017-08-10 14:09 | disposition home or self-care (01) | DRG 673 ==
LOC: ERS 13:11 → ERHOLD 18:05 → OBSVTOIN 18:05 → 2SW 08-07 14:59 → T4-A 08-08 16:29
PROVIDERS: ADMIT Internal Medicine; ATTEND Internal Medicine
PROC: 02HV33Z Insertion of Infusion Device into Superior Vena Cava, Percutaneous Approach (ICD-10-PCS; principal; 2017-08-07)
PROC: 0WHG43Z Insertion of Infusion Device into Peritoneal Cavity, Percutaneous Endoscopic Approach (ICD-10-PCS; 2017-08-07)
PROC: 031C09F Bypass Left Radial Artery to Lower Arm Vein with Autologous Venous Tissue, Open Approach (ICD-10-PCS; 2017-08-07)
PROC: 0DUU4JZ Supplement Omentum with Synthetic Substitute, Percutaneous Endoscopic Approach (ICD-10-PCS; 2017-08-07)
PROC: B5181ZA Fluoroscopy of Superior Vena Cava using Low Osmolar Contrast, Guidance (ICD-10-PCS; 2017-08-07)
PROC: 02H633Z Insertion of Infusion Device into Right Atrium, Percutaneous Approach (ICD-10-PCS; 2017-08-07)
PROC: B2141ZZ Fluoroscopy of Right Heart using Low Osmolar Contrast (ICD-10-PCS; 2017-08-07)
PROC: 5A1D70Z Performance of Urinary Filtration, Intermittent, Less than 6 Hours Per Day (ICD-10-PCS; 2017-08-08)
DX: I12.0 Hypertensive chronic kidney disease with stage 5 chronic kidney disease or end stage renal disease (principal); N18.6 End stage renal disease; N17.9 Acute kidney failure, unspecified; E87.0 Hyperosmolality and hypernatremia; E87.2 Acidosis; I48.92 Unspecified atrial flutter; E11.22 Type 2 diabetes mellitus with diabetic chronic kidney disease; Z79.84 Long term (current) use of oral hypoglycemic drugs; Z89.421 Acquired absence of other right toe(s); D63.1 Anemia in chronic kidney disease; E87.5 Hyperkalemia; F41.9 Anxiety disorder, unspecified; F32.9 Major depressive disorder, single episode, unspecified
CPT/HCPCS: 36415; 36416; 71010; 80048; 80053; 80069; 83690; 85025; 86580; 86704; 86706; 86803; 87340; 90935; 93005; 93970; 96372; A4216; C1752; C1769; G0257; G0365; J1644; J1940; J2001; J2405; J2550; J2704; J2720; J3010; J7050; Q4081

== ENCOUNTER → 2017-08-24 | Day surgery (SDC) | payer OTHER ==
--- NOTE | 2017-08-23 14:53 | HP ---
HISTORY OF PRESENT ILLNESS: Giovanni Castillo is a 56-year-old male patient, recently presented requ esting peritoneal dialysis access, hemodialysis access. He is followed by Dr. Osborne. The patient underwent right IJ cuffed tunnel dialysis catheter, laparoscopic peritoneal dialysis catheter with om entopexy, and left Vivi fistula outflow 3.5 mm coronary dilator on 08/07/2017. Radial artery was ar teriosclerotic. He presented to my office today and this Vivi fistula is well-developed and ready for access in the first part of September. He, however, does not want anything to do with peritoneal d ialysis after some discussion ensuring and that he has decided with certainty he does not want to do peritoneal dialysis. Plan is to remove his peritoneal dialysis catheter tomorrow under IV sedation a nd local anesthesia. He understands the risks and benefits and consents. He dialyzes at [facility] Sunday, Sunday, and Sunday at 4:00 p.m. He is followed by Dr. Osborne. PAST MEDICAL HISTORY: End-stage renal disease, diabetes mellitus, hypertension, probable history of CARMEL without prior testing. TOBACCO: None. ALCOHOL: None. ALLERGIES: None. PAST SURGICAL HISTORY: Right middle toe amputation, right knee surgery, right ankle surgery, left in guinal hernia repair as a child, never having had a colonoscopy. Cardiac ablation for atrial thrombu s, ILDEFONSO that was normal subsequently. REVIEW OF SYSTEMS: Ten-point noncontributory. PHYSICAL EXAMINATION: VITAL SIGNS: 215 pounds, 71 inches, 156/73, 57, 99.1 degrees. LUNGS: Clear to auscultation. CARDIAC: Regular rate and rhythm without murmur or gallop. ABDOMEN: Soft. Peritoneal dialysis catheter in place with . It is well fixed and I cannot rem ove it without sedation, local, outpatient. Left Vivi fistula, good thrill and bruit, well formed throughout the forearm. Hemodialysis catheter, right IJ. ASSESSMENT AND PLAN: End-stage renal disease, dialyzes at [facility] Sunday, Sunday, and Sunday at 4: [address] Osborne plan removal of his PD catheter. Plan to have him started accessing his left Ci arthur fistula on September 05 and return to see me in September and hopefully remove his hemodialysis cat heter.
[2017-08-23 15:19] VITALS: BMI 29.2
[~2017-08-24] MED LIST: Bupivacaine/Epinephrine 0.25% 30 ML VIAL ONE; CEFAZOLIN/Water 2 GM/20 ML SYRINGE ONE; Fentanyl 100 MCG/2 ML VIAL ONE; Heparin 10,000 UNITS/ 10 ML VIAL ONE; Lidocaine 2% PF 5 ML VIAL ONE
[2017-08-24 07:41] LABS: #Basophils 0.1 thou/uL (0.0-0.2); #Eosinphils 0.6 thou/uL (0.0-0.7); #Lymphocytes 1.3 thou/uL (1.20-3.40); #Monocytes 0.5 thou/uL (0.11-0.59); #Neutrophils 4.2 thou/uL (1.40-6.50); %Eosinophils 8.6 % (0.0-10.0); %Lymphocytes 19.7 % (21.0-51.0); %Monocytes 7.3 % (0.0-10.0); Hematocrit 31.6 % (42.0-52.0); Red Blood Cell (RBC) Count 3.24 mill/uL (4.70-6.10); White Blood Cell (WBC) Count 6.6 thou/uL (4.8-10.8)
[2017-08-24 07:55] LABS: Anion Gap 15 mmol/L (10-20); BUN (Urea Nitrogen) 34 mg/dL (8.4-25.7); Calc. Creatinine Clearance 20 mL/min (70-130); Calcium 9.3 mg/dL (7.8-10.44); Carbon Dioxide 28 mmol/L (22-29); Chloride 98 mmol/L (98-107); Estimated GFR-MDRD 11
--- NOTE | 2017-08-24 08:53 | OP ---
DATE OF PROCEDURE: 08/24/2017 PREOPERATIVE DIAGNOSES: End-stage renal disease, maturing left Vivi fistula, hemodialysis catheter dependent, peritoneal dialysis catheter present and the patient does not want it. POSTOPERATIVE DIAGNOSES: End-stage renal disease, maturing left Vivi fistula, hemodialysis cathete r dependent, peritoneal dialysis catheter present and the patient does not want it. PROCEDURE: Removal of peritoneal dialysis catheters. SURGEON: Dr. Tommy Fry ANESTHESIA: LMA, general, local 0.25% Marcaine with epinephrine, 30 mL, mixed with 2% Xylocaine, 10 mL. PROCEDURE IN DETAIL: The patient taken to the operating room where under LMA general anesthesia, abd omen and PD catheter prepared with ChloraPrep, draped in routine fashion. Catheter and cuff dissecte d free, removed after anesthetizing it with local anesthetic. Gauze dressing applied. The patient t olerated the procedure well.
== END ==
LOC: SDC 07:15
PROVIDERS: ATTEND Specialist
PROC: 0WPG33Z Removal of Infusion Device from Peritoneal Cavity, Percutaneous Approach (ICD-10-PCS; principal; 2017-08-24)
DX: E11.22 Type 2 diabetes mellitus with diabetic chronic kidney disease (principal); I12.0 Hypertensive chronic kidney disease with stage 5 chronic kidney disease or end stage renal disease; N18.6 End stage renal disease; Z79.899 Other long term (current) drug therapy; Z99.2 Dependence on renal dialysis; Z89.421 Acquired absence of other right toe(s); Z98.890 Other specified postprocedural states
CPT/HCPCS: 80048; 85025; J1644; J2001; J3010

== ENCOUNTER 2018-07-19 12:46 | Inpatient (IN) | payer MEDICARE ==
[2018-07-19 13:32] LABS: INR-International Normal Ratio 1.4; PTT 31.4 SEC (22.9-36.1); Prothrombin Time 17.1 SEC (12.0-14.7)
[2018-07-19 13:34] LABS: Hemoglobin 12.2 g/dL (14.0-18.0); Mean Corpuscular HGB CONC 32.3 g/dL (32.0-36.0); Mean Corpuscular Hemoglobin 32.2 pg (27.0-31.0); Mean Corpuscular Volume 99.7 fL (78.0-98.0); Mean Platelet Volume 8.9 fL (7.4-10.4); Platelet Count 202 thou/uL (130-400); RBC Distribution Width 12.9 % (11.5-14.5); Red Blood Cell (RBC) Count 3.79 mill/uL (4.70-6.10); White Blood Cell (WBC) Count 12.1 thou/uL (4.8-10.8)
[2018-07-19 13:46] LABS: Band 43 % (5-11); Burr Cells SLIGHT = 2-5 cells (100X) (0-1/hpf); Lymphocytes 2 % (21-51); MDiff Complete? YES; Neutrophil 55 % (42-75); PLT Morphology Comment Appears Adequate; Polychromasia SLIGHT = 2-3 cells (100X) (0-2/hpf); Reflex for Review?? YES; Toxic Granulation SLIGHT; Vacuoles SLIGHT
[2018-07-19 13:52] LABS: ALT (SGPT) 12 U/L (8-55); AST (SGOT) 14 U/L (5-34); Alkaline Phosphatase 49 U/L (40-150); Anion Gap 29 mmol/L (10-20); BUN (Urea Nitrogen) 124 mg/dL (8.4-25.7); Bilirubin, Total 1.2 mg/dL (0.2-1.2); Calc. Creatinine Clearance 0 mL/min (70-130); Calcium 8.7 mg/dL (7.8-10.44); Carbon Dioxide 17 mmol/L (22-29); Chloride 90 mmol/L (98-107); Estimated GFR-MDRD 4; Globulin 3.9 g/dL (2.4-3.5); Glucose 166 mg/dL (70-105); Magnesium 2.3 mg/dL (1.6-2.6); Potassium 5.7 mmol/L (3.5-5.1); Protein, Total 6.9 g/dL (6.0-8.3); Sodium 130 mmol/L (136-145)
[2018-07-19 13:55] LABS: CKMB 1.9 ng/mL (0-6.6); Troponin I 0.122 ng/mL (< 0.028)
[2018-07-19] MEDS ORDERED: metroNIDAZOLE 500 MG/100 ML BAG ONE (15:42)
[2018-07-19] MEDS ORDERED: Lorazepam 1 MG TAB ONE (15:42)
[2018-07-19 17:31] LABS: Troponin I 0.097 ng/mL (< 0.028)
[2018-07-19 20:02] LABS: Troponin I 0.104 ng/mL (< 0.028)
--- NOTE | 2018-07-19 20:20 | RAD ---
PORTABLE SUPINE FRONTAL CHEST RADIOGRAPH: 07/19/18 COMPARISON: 08/07/17. HISTORY: Right basilar rales. Nausea, vomiting, and diarrhea, bloody stool. FINDINGS: Supine imaging is provided, limiting assessment for pneumothorax and pleural fluid. Right lung appear s clear. Cardiac silhouette is prominent. There is pulmonary vascular prominence. There is mild hazy density in the medial left lung base and left perihilar region which could represent volume loss, sca r or infiltrate. Followup nonemergent PA and lateral chest imaging is thus advised. IMPRESSION: Mild increased density on the left. Right lung appears clear. POS: [facility]
[2018-07-19] MEDS: Heparin 5,000 UNITS/ML VIAL SC SCH (22:14)
[2018-07-20] MEDS ORDERED: cefTRIAXone\\ROCEPHIN 1 GM VIAL ONE (00:30)
[2018-07-20] MEDS ORDERED: Acetaminophen 325 MG TAB ONE (00:31)
[2018-07-20] MEDS: cefTRIAXone\\ROCEPHIN 1 GM in Sodium Chloride 0.9% 100 ML IVPB SCH ×2 (00:34→23:31)
[2018-07-20] MEDS: Acetaminophen 325 MG TAB PO PRN ×3 (00:47→23:31)
--- NOTE | 2018-07-20 03:23 | CON ---
DATE OF CONSULTATION: 07/19/2018 CONSULTING PHYSICIAN: . REASON FOR CONSULTATION: End-stage renal dialysis care. REASON FOR COMPLAINT: Not feeling well. HISTORY OF PRESENT ILLNESS: A 57-year-old male with history of end-stage renal disease, type 2 diabe curt, hypertension, hernia, came to the hospital with not feeling well. The patient is not feeling be tter and has not gone to dialysis for 2 days and was found to have weakness and was brought to the [facility]. No chest pain, nausea, vomiting, diarrhea, fever, chills, rash. PAST MEDICAL HISTORY: Positive for end-stage renal disease, on hemodialysis; type 2 diabetes; hypert ension. PAST SURGICAL HISTORY: Hernia repair, dialysis access placement, knee surgery. HOME MEDICATIONS: , hydralazine, nifedipine, lisinopril, carvedilol. ALLERGIES: No known drug allergies. SOCIAL HISTORY: No smoking, alcohol or drugs. FAMILY HISTORY: No history of kidney disease. REVIEW OF SYSTEMS: The following complete review of systems was negative, unless otherwise mentioned in the HPI or below: Constitutional: Weight loss or gain, ability to conduct usual activities. Skin: Rash, itching. Eyes: Double vision, pain. ENT/Mouth: Nose bleeding, neck stiffness, pain, tenderness. Cardiovascular: Palpitations, dyspnea on exertion, orthopnea. Respiratory: Shortness of breath, wheezing, cough, hemoptysis, fever or night sweats. Gastrointestinal: Poor appetite, abdominal pain, heartburn, nausea, vomiting, constipation, or diarrhea. Genitourinary: Urgency, frequency, dysuria, nocturia. Musculoskeletal: Pain, swelling. Neurologic/Psychiatric: Anxiety, depression. Allergy/Immunologic: Skin rash, bleeding tendency. PHYSICAL EXAMINATION: GENERAL: This is a well-built male, in no apparent distress. VITAL SIGNS: Temperature 97.6, pulse 50, respiratory rate 18, blood pressure 111/62. HEENT: Atraumatic, normocephalic. Oral mucosa is moist. NECK: Supple. CARDIOVASCULAR: S1, S2 heard. Rate and rhythm regular. RESPIRATORY: Clear. ABDOMEN: Soft. MUSCULOSKELETAL: 1+ edema. DERMATOLOGIC: No skin rash. NEUROLOGIC: Alert, awake. PSYCHIATRIC: Mood and affect. LABORATORY: Hemoglobin is 12.2, potassium is 5.7, BUN 124, creatinine 13.7. ASSESSMENT AND PLAN: 1. End-stage renal disease. Continue on hemodialysis as tolerated. 2. Edema, controlled. 3. Hypertension. 4. Hyperkalemia. 5. Metabolic acidosis. We will have dialysis. 6. Anemia of end-stage renal disease. 7. Hypoalbuminemia. Plan is to have dialysis. Dialysis nurse notified. We will continue on dialysis as tolerated. We w ill follow.
[2018-07-20 06:09] LABS: Anion Gap 22 mmol/L (10-20); BUN (Urea Nitrogen) 69 mg/dL (8.4-25.7); Calc. Creatinine Clearance 11 mL/min (70-130); Calcium 8.8 mg/dL (7.8-10.44); Carbon Dioxide 22 mmol/L (22-29); Chloride 94 mmol/L (98-107); Estimated GFR-MDRD 6; Glucose 123 mg/dL (70-105); Potassium 4.5 mmol/L (3.5-5.1); Sodium 133 mmol/L (136-145)
--- NOTE | 2018-07-20 06:31 | HP ---
CHIEF COMPLAINT: Missed dialysis. HISTORY OF PRESENT ILLNESS: The patient is a 57-year-old male with a history of chronic renal disease, on dialysis. The patient reports his last dialysis was on Sunday. He stated, at that time, he developed some headache and backache. When he went home, he continued to feel profoundly weak. Apparently , he had some nausea, vomiting, and diarrhea. He has fallen several times and was encouraged to come to the emergency department, but refused to come. In fact, he told his family that if an ambulance showed up in his driveway that he was threatening to actually harm himself. Today somehow he got the "right friend" on the phone and they were able to convince him that he needed to come to the hospital. He states that he basically has no confidence in the whole care system in order to avoid all of the needle sticks and prodding which is why he was so resistant to coming. He also reports that he has had hiccups that started on Sunday and had persisted as well. He believes he may have had some intermittent fevers and chills. REVIEW OF SYSTEMS: Also notable for generalized fatigue and poor appetite. Otherwise, negative through a 10-system review. PAST MEDICAL HISTORY: Notable for diabetes, hypertension, end-stage renal disease, atrial fibrillation, history of left atrial thrombus, history of diabetic retinopathy. PAST SURGICAL HISTORY: Bilateral total knee arthroplasties; herniorrhaphy; right middle toe amputation, right foot; atrial fibrillation with ablation; I&D of the ankle for abscess. FAMILY HISTORY: Father of aneurysm. Mother of breast cancer. SOCIAL HISTORY: No tobacco. The patient has a history of heavy alcohol abuse, but quit 2 years ago. He is . His surrogate decision maker would be his daughter Zelda. He is DNR. ALLERGIES: None. CURRENT MEDICATIONS: Tramadol 50 mg q.6 hours p.r.n., hydralazine 100 mg p.o. t.i.d., hydrocortisone 30 mg q. day, nifedipine 60 mg q. day, lisinopril 5 mg q. day, carvedilol 25 mg b.i.d., Tylenol p.r.n. PHYSICAL EXAMINATION: VITAL SIGNS: Blood pressure is 125/76, pulse 58, respirations 16, temperature 97.8, O2 sat 98% on room air. GENERAL: Appears ill. He is having some mild generalized convulsive activity from time to time, has chronic hiccups. He was bit somnolent after having just received some benzodiazepine. HEENT: PERRL. No OP lesions. Poor dentition. Poor dental hygiene. CARDIOVASCULAR: Regular rate and rhythm without murmurs, gallops or rubs. LUNGS: Reveal left basal rales. ABDOMEN: Obese, soft, nontender, nondistended. Positive bowel sounds. No masses, no organomegaly. EXTREMITIES: Warm and dry without edema. Absent right middle toe. LABORATORY DATA: White count 12.1, hemoglobin 12.2, platelets 202, 43% bands, 2 % lymphocytes. INR is 1.4. Sodium 130, potassium 5.7, chloride 90, CO2 of 17, BUN 124, creatinine is 13.7, glucose 166. LFTs normal. Troponin 0.122, albumin 3.0. Stool for occult blood negative. IMPRESSION AND PLAN: 1. The patient has end-stage renal disease and requires frequent dialysis; however, he has missed dialysis for the last 2 sessions and was having increasing symptoms of uremia including hiccups, convulsions, nausea, vomiting, diarrhea. I have discussed with Dr. Osborne. He is instructed dialysis team to go ahead and perform dialysis tonight. 2. Hyperkalemia secondary to the uremia, should resolve with the dialysis. 3. Hypertension. Continue with the nifedipine and lisinopril as well as the hydralazine. 4. Nausea, vomiting, uremia. Should improve with treatment with renal replacement therapy. 5. Possible left lower lobe pneumonia. We will obtain chest x-ray. 6. The patient had concern for gastroenteritis and received Cipro and Flagyl in the emergency department; however, I suspect this is more likely related to the uremia. We will not continue his antibiotics at this time. TESSY
[2018-07-20 06:41] LABS: Band 18 % (5-11); Hemoglobin 12.1 g/dL (14.0-18.0); Hypochromia SLIGHT = 6-15 cells (100X) (0-5/hpf); Lymphocytes 2 % (21-51); MDiff Complete? YES; Mean Corpuscular Hemoglobin 31.8 pg (27.0-31.0); Mean Corpuscular Volume 99.2 fL (78.0-98.0); Mean Platelet Volume 8.9 fL (7.4-10.4); Monocytes 1 % (0-10); Neutrophil 79 % (42-75); PLT Morphology Comment Appears Adequate; Platelet Count 180 thou/uL (130-400); RBC Distribution Width 12.9 % (11.5-14.5); Red Blood Cell (RBC) Count 3.81 mill/uL (4.70-6.10); White Blood Cell (WBC) Count 11.9 thou/uL (4.8-10.8)
[2018-07-20] MEDS ORDERED: Sodium Chloride 0.9% 10 ML ONE (07:52)
[2018-07-20] MEDS: Heparin 5,000 UNITS/ML VIAL SC SCH ×3 (09:34→21:00)
--- NOTE | 2018-07-20 10:11 | PDOC.PN ---
- Subjective Encounter Start Date: 07/20/18 Encounter Start Time: 10:11 Still has hiccoughs. Now says he did have some discolored sputum en route here. Says he is not suicidal. Palliative care meeting with him now. - Objective Resuscitation Status: Resuscitation Status DNR:Do Not Resuscitate Vital Signs & Weight: Vital Signs (12 hours) Temp Pulse Resp BP Pulse Ox 07/20/18 04:00 99.0 F 74 16 135/93 H 91 L 07/20/18 00:00 100.8 F H 71 20 143/84 H 97 Weight Weight 187 lb 3.2 oz Result Diagrams: 07/20/18 05:14 07/20/18 05:14 Additional Labs: Accuchecks 07/20/18 07/20/18 05:30 00:12 POC Glucose 118 H 113 H Phys Exam - Physical Examination Constitutional: NAD Looks much better in general. Respiratory: no wheezing, no rales, no rhonchi, clear to auscultation bilateral Cardiovascular: RRR, no significant murmur Gastrointestinal: soft, non-tender, no distention, positive bowel sounds Musculoskeletal: no edema Psychiatric: normal affect, A&O x 3 Skin: normal turgor Dx/Plan (1) Volume overload Code(s): E87.70 - FLUID OVERLOAD, UNSPECIFIED Status: Acute Comment: Currently not felt to be due to CHF. Related to missed HD sessions. Had HD last night and will likley have it again today. (2) Pneumonia Code(s): J18.9 - PNEUMONIA, UNSPECIFIED ORGANISM Status: Acute Qualifiers: Laterality: left Lung location: lower lobe of lung Comment: Sounds a little better today. 2 v cxr today. May be a component of overload. Rocephin. (3) Gastroenteritis Code(s): K52.9 - NONINFECTIVE GASTROENTERITIS AND COLITIS, UNSPECIFIED Status : Acute Comment: Suspect related to uremia and not infectious. Stopping Cipro and Flagyl started in ED. (4) ESRD (end stage renal disease) Code(s): N18.6 - END STAGE RENAL DISEASE Status: Acute Comment: initiated on HD (5) Anxiety and depression Code(s): F41.9 - ANXIETY DISORDER, UNSPECIFIED; F32.9 - MAJOR DEPRESSIVE DISORDER, SINGLE EPISODE, UNSPECIFIED Status: Chronic Comment: Patient threatened self harm if an ambulance showed up at his home to take him to the hospital. He obviously aquiesced and came anyway. Denies suicidality. (6) Hypertension Code(s): I10 - ESSENTIAL (PRIMARY) HYPERTENSION Status: Chronic Qualifiers: Hypertension type: essential hypertension Qualified Code(s): I10 - Essential (primary) hypertension Comment: home meds. (7) H/O atrial flutter Code(s): Z86.79 - PERSONAL HISTORY OF OTHER DISEASES OF THE CIRCULATORY SYSTEM Status: Resolved Comment: Hx of ablation. (8) Uremia Code(s): N19 - UNSPECIFIED KIDNEY FAILURE Status: Acute Comment: Much improved with HD. (9) Hyperkalemia Code(s): E87.5 - HYPERKALEMIA Status: Resolved (10) Intractable hiccoughs Code(s): R06.6 - HICCOUGH Status: Acute Comment: Likely secondary to uremia. Give Thorazine and await further HD. (11) Junctional cardiac arrhythmia Code(s): I49.8 - OTHER SPECIFIED CARDIAC ARRHYTHMIAS Status: Acute Comment: Consult cardiology. Echo for evidence of cardiomegaly on CXR. - Plan * above.
[2018-07-20] MEDS: chlorproMAZINE HCl 25 MG TAB PO PRN ×2 (12:34→18:00)
--- NOTE | 2018-07-20 12:44 | PRG ---
DATE OF SERVICE: 07/20/2018 SUBJECTIVE: Patient was seen and examined at bedside and overnight events noted. Patient denies any shortness of breath or chest pain or palpitation. No history of nausea or vomiting or diarrhea or f ever or chills or cramps. OBJECTIVE: GENERAL: This is a well-built male, in no apparent distress. VITAL SIGNS: Temperature 99.0, pulse 74, respiratory rate 16, blood pressure 135/93. HEENT: Atraumatic, normocephalic. Oral mucosa is moist. NECK: Supple. CARDIOVASCULAR: S1, S2 heard. Rate and rhythm regular. RESPIRATORY: Clear to auscultation. GASTROINTESTINAL: Abdomen is soft. MUSCULOSKELETAL: No tenderness. No edema. DERMATOLOGIC: No skin rash. NEUROLOGIC: Alert and awake and oriented x3. No focal neurologic deficits. Moving all the extremit ies. PSYCHIATRIC: Mood and affect normal. LABORATORY DATA: Potassium is 4.5, BUN is 69, creatinine is 8.9. ASSESSMENT AND PLAN: 1. End-stage renal disease. We will continue dialysis. 2. Edema, fluid. 3. Hyperkalemia. 4. Metabolic acidosis. 5. Anemia. 6. Hiccups. Okay with Thorazine. Will have dialysis.
--- NOTE | 2018-07-20 12:54 | RAD ---
PA AND LATERAL CHEST: Date: 07/20/18 HISTORY: Pneumonia. FINDINGS: Comparison made with exam from previous day. The heart size is enlarged. The lungs are expanded with bilateral perihilar and left basilar infiltra curt. No pneumothoraces or pleural effusions are seen. IMPRESSION: Findings are suggestive of pneumonia. POS: [facility]
[2018-07-20] MEDS: Azithromycin 500 MG in Sodium Chloride 0.9% 250 ML 250 ML IVPB SCH ×2 (16:08→20:59)
--- NOTE | 2018-07-20 19:45 | CON ---
DATE OF CONSULTATION: 07/20/2018 CARDIOLOGY CONSULTATION NOTE INDICATION FOR CONSULTATION: A 57-year-old patient with a history of coronary artery disease status post angioplasty and stent placements, who has end-stage renal disease on hemodialysis. Recently, he has been very weak and did not report to his dialysis. He continued to deteriorate and eventually agreed to come to the hospital and is now being given dialysis. He also says that he is having some hiccups since last Sunday and he would become very irritable. They have been nonstop (he did report having a cousin who had hiccups of 40 days and 340 nights nonstop and eventually he said that patient succumbed to the hiccups and apparently , but whether or not due to hiccups is unclear, but the patient was suggesting this could be the etiology. Otherwise, he has had no significant cardiac complaints. He was seen by Dr. Archer last year in the office. He has not had angioplasty and stent placement. He has had ablation. He has not had coronary artery disease or bypass or stents. He has had an ablation performed in the past. We were asked to see him today because he did have some episodes of junctional rhythm. He has been asymptomatic with the junctional rhythm. The remainder of the time, he appears to be in sinus rhythm. There is no evidence of intermittent arrhythmias. No atrial fibrillation has been noted and he had the ablation for atrial fibrillation in the past. Otherwise, he denies any chest pain except for the discomfort associated with the pickups. PAST MEDICAL HISTORY: Significant for diabetes, hypertension, end-stage renal disease on hemodialysis. He has had history of atrial fibrillation, left atrial thrombus. He has diabetic retinopathy. He has had bilateral knee arthroplasty. He has had a herniorrhaphy. He has had a right foot surgery. He has had a right middle toe amputation. He has had some abscesses and I&D of the ankle. He has had atrial fibrillation, status post ablation. FAMILY HISTORY: Unremarkable for any early heart disease with father of an aneurysm. His mother had some type of breast cancer. SOCIAL HISTORY: He has drank heavily in the past, but stopped a couple of years ago. He has no tobacco abuse. He is . 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 ALLERGIES: None. MEDICATIONS: Include hydralazine, tramadol, hydrocortisone, lisinopril, nifedipine, Coreg. He has been taking 25 mg b.i.d. and the supervisor press room suggested he cut that to once a day. I would suggest he takes 12.5 mg b.i.d. and he takes Tylenol p.r.n. REVIEW OF SYSTEMS: Unremarkable except for the irritation associated with hiccups and the overall generalized weakness. Otherwise, he denied any new HEENT complaints, no visual changes, no pulmonary complaints, GI complaints, complaints. PHYSICAL EXAMINATION: GENERAL: Reveals a well-developed, well-nourished gentleman who is in no acute distress at this time. He continued hiccups throughout the evaluation. VITAL SIGNS: Blood pressure is 145/65, heart rate is in the 70s and shows a sinus rhythm at this time. He is afebrile, respiratory rate 20 and O2 saturations 90%. HEENT: Shows head to be normocephalic and atraumatic. Carotid pulses are present. I did not hear any significant bruits. CHEST: Clear to auscultation without rales, rhonchi or wheezing. CARDIOVASCULAR: Exam reveals a regular rate and rhythm. Heart sounds are somewhat distant, but may be difficult to auscultate due to the continued hiccups. There were no significant murmurs, heaves, thrills, bruits or rubs. ABDOMEN: Soft and nontender. Positive bowel sounds are present. EXTREMITIES: Showed no clubbing, cyanosis or edema. The right middle toe is absent. NEUROLOGIC: The patient appears to be intact except he does appear to be somewhat depressed. LABORATORY DATA AND IMAGING DATA: Shows WBC of 12.1, hemoglobin 12.2, potassium was 5.7, creatinine is 13.7. His EKG shows a sinus rhythm. He did have short episodes of what appear to be an accelerated junctional rhythm. IMPRESSION: 1. A middle-aged gentleman with multiple medical problems who has end-stage renal disease on hemodialysis who has been noncompliant with his dialysis. I believe he has been evaluated in [place] at this time to undergo a renal transplant. 2. History of hyperkalemia. This has improved since dialysis. 3. History of hypertension. Blood pressure is under reasonable control at this time, somewhat on the high side, but reasonable control. We will continue to follow him. 4. History of atrial fibrillation. He has had no further episodes of atrial fibrillation after the ablation. We would be more than happy to continue to follow the patient with you. TESSY
[2018-07-20] MEDS ORDERED: Azithromycin 500 MG in Sodium Chloride 0.9% 250 ML 250 ML IVPB SCH (20:00)
[2018-07-21] MEDS: chlorproMAZINE HCl 25 MG TAB PO PRN ×2 (09:06→22:38)
[2018-07-21] MEDS: Heparin 5,000 UNITS/ML VIAL SC SCH ×3 (09:07→22:24)
[2018-07-21 11:29] LABS: #Eosinphils 0.1 thou/uL (0.0-0.7); #Lymphocytes 1.2 thou/uL (1.20-3.40); #Monocytes 0.1 thou/uL (0.11-0.59); #Neutrophils 11.2 thou/uL (1.40-6.50); %Basophils 0.1 % (0.0-1.0); %Eosinophils 0.5 % (0.0-10.0); %Lymphocytes 9.7 % (21.0-51.0); %Monocytes 1.1 % (0.0-10.0); %Neutrophils 88.6 % (42.0-75.0); Hemoglobin 11.6 g/dL (14.0-18.0); Mean Corpuscular HGB CONC 31.5 g/dL (32.0-36.0); Mean Corpuscular Hemoglobin 31.8 pg (27.0-31.0); Mean Platelet Volume 8.8 fL (7.4-10.4); Platelet Count 193 thou/uL (130-400); RBC Distribution Width 13.3 % (11.5-14.5); Red Blood Cell (RBC) Count 3.63 mill/uL (4.70-6.10); White Blood Cell (WBC) Count 12.6 thou/uL (4.8-10.8)
[2018-07-21] MEDS ORDERED: Dextrose 50% Abboject 50 ML SYRINGE SLOW IVP PRN ×2 (11:42)
[2018-07-21] MEDS ORDERED: Dextrose 5% in Water 1,000 ML IV PRN (11:42)
[2018-07-21 11:52] LABS: Anion Gap 22 mmol/L (10-20); BUN (Urea Nitrogen) 62 mg/dL (8.4-25.7); Calc. Creatinine Clearance 12 mL/min (70-130); Calcium 9.5 mg/dL (7.8-10.44); Carbon Dioxide 23 mmol/L (22-29); Chloride 94 mmol/L (98-107); Estimated GFR-MDRD 7; Glucose 208 mg/dL (70-105); Potassium 4.3 mmol/L (3.5-5.1); Sodium 135 mmol/L (136-145)
--- NOTE | 2018-07-21 11:53 | PDOC.PN ---
- Subjective Encounter Start Date: 07/21/18 Encounter Start Time: 10:10 Still has hiccups. Says Tylenol was the most helpful thing for him at home. Would like to have some ordered at higher doses. Reports generalized weakness for one week. Has not been able to get up by himself since then. - Objective Resuscitation Status: Resuscitation Status DNR:Do Not Resuscitate Vital Signs & Weight: Vital Signs (12 hours) Temp Pulse Resp BP Pulse Ox 07/21/18 07:48 98.3 F 65 18 107/60 94 L 07/21/18 05:45 97.8 F 61 24 H 114/55 L 95 07/20/18 23:55 99 F Weight Admit Weight 187 lb 3.2 oz Weight 184 lb 7 oz I&O: 07/20/18 07/21/18 07/22/18 06:59 06:59 06:59 Intake Total 1230 Output Total 2500 Balance -1270 Result Diagrams: 07/21/18 11:21 07/20/18 05:14 Additional Labs: Accuchecks 07/21/18 07/21/18 07/20/18 11:14 05:03 21:04 POC Glucose 223 H 148 H 136 H 07/20/18 07/20/18 17:45 11:01 POC Glucose 132 H 161 H Radiology Reviewed by me: Yes Phys Exam - Physical Examination Constitutional: NAD Respiratory: no wheezing, no rales, no rhonchi, clear to auscultation bilateral Fine, scattered rales. Cardiovascular: RRR, no significant murmur Gastrointestinal: soft, non-tender, no distention Musculoskeletal: no edema Psychiatric: normal affect, A&O x 3 Dx/Plan (1) Volume overload Code(s): E87.70 - FLUID OVERLOAD, UNSPECIFIED Status: Resolved Comment: Currently not felt to be due to CHF. Related to missed HD sessions. Had HD last night and will likley have it again today. (2) Pneumonia Code(s): J18.9 - PNEUMONIA, UNSPECIFIED ORGANISM Status: Acute Qualifiers: Laterality: bilateral Comment: Repeat imaging confirmed bilateral infiltrates. Still febrile last night. Will change coverage to be more aggressive for likely aspiration pneumonia. Vanc/Zosyn. (3) Gastroenteritis Code(s): K52.9 - NONINFECTIVE GASTROENTERITIS AND COLITIS, UNSPECIFIED Status : Resolved Comment: Suspect related to uremia and not infectious. Stopping Cipro and Flagyl started in ED. (4) ESRD (end stage renal disease) Code(s): N18.6 - END STAGE RENAL DISEASE Status: Acute Comment: initiated on HD (5) Anxiety and depression Code(s): F41.9 - ANXIETY DISORDER, UNSPECIFIED; F32.9 - MAJOR DEPRESSIVE DISORDER, SINGLE EPISODE, UNSPECIFIED Status: Chronic Comment: Patient threatened self harm if an ambulance showed up at his home to take him to the hospital. He obviously aquiesced and came anyway. Denies suicidality. [facility] has been consulted. Will await that evaluation. PC team meeting with patient. (6) Hypertension Code(s): I10 - ESSENTIAL (PRIMARY) HYPERTENSION Status: Chronic Qualifiers: Hypertension type: essential hypertension Qualified Code(s): I10 - Essential (primary) hypertension Comment: home meds. (7) H/O atrial flutter Code(s): Z86.79 - PERSONAL HISTORY OF OTHER DISEASES OF THE CIRCULATORY SYSTEM Status: Resolved Comment: Hx of ablation. (8) Uremia Code(s): N19 - UNSPECIFIED KIDNEY FAILURE Status: Acute Comment: Much improved with HD. (9) Hyperkalemia Code(s): E87.5 - HYPERKALEMIA Status: Resolved (10) Intractable hiccoughs Code(s): R06.6 - HICCOUGH Status: Acute Comment: Likely secondary to uremia. No resolution with Thorazine. Discussed with Nephrology. Will try baclofen. (11) Junctional cardiac arrhythmia Code(s): I49.8 - OTHER SPECIFIED CARDIAC ARRHYTHMIAS Status: Acute Comment: Appreciate cardiology consult. No new interventions. - Plan * Continue tx for pneumonia. * Continue HD per nephrology. * Await [facility] consult. * PT for generalized weakness for one weak. * CM consult for help at home.
[2018-07-21] MEDS ORDERED: Vancomycin HCl 500 MG in Sodium Chloride 0.9% 100 ML IVPB SCH (12:00)
[2018-07-21] MEDS ORDERED: HOLD VANCOMYCIN FOR LEVEL >20 FS SCH (12:00)
[2018-07-21] MEDS ORDERED: Vancomycin HCl 750 MG in Sodium Chloride 0.9% 250 ML 250 ML IVPB SCH (12:00)
[2018-07-21] MEDS ORDERED: Vancomycin HCl 1 GM in Premix Bag 1 BAG IVPB SCH ×3 (12:00)
[2018-07-21] MEDS ORDERED: Vancomycin Sliding Scale 1 EACH FS ONE (12:00)
[2018-07-21] MEDS ORDERED: Vancomycin HCl 1.25 GM in Sodium Chloride 0.9% 250 ML 250 ML IVPB SCH (12:00)
[2018-07-21] MEDS: HumaLOG 300 UNITS/3 ML VIAL SC PRN ×2 (12:33→22:34)
[2018-07-21] MEDS: Piperacillin/Tazobactam 2.25 GM in Sodium Chloride 0.9% 100 ML IVPB SCH ×2 (14:25→22:27)
[2018-07-21] MEDS: Baclofen 10 MG TAB PO SCH ×2 (14:26→22:23)
[2018-07-21] MEDS: Acetaminophen 500 MG TAB PO PRN (14:26)
--- NOTE | 2018-07-21 19:35 | PRG ---
DATE OF SERVICE: 07/21/2018 SUBJECTIVE: Patient was seen and examined at bedside and overnight events noted. Patient denies any shortness of breath or chest pain or palpitation. No history of nausea or vomiting or diarrhea or f ever or chills or cramps. OBJECTIVE: GENERAL: This is a well-built male in no apparent distress. VITAL SIGNS: Temperature 98.2, pulse 70, respiratory rate 18, blood pressure 109/59. HEENT: Atraumatic, normocephalic. Oral mucosa is moist. NECK: Supple CARDIOVASCULAR: S1, S2 heard. Rate and rhythm regular. RESPIRATORY: Clear to auscultation. GASTROINTESTINAL: Abdomen is soft. MUSCULOSKELETAL: No tenderness, no edema. DERMATOLOGIC: No skin rash. NEUROLOGIC: Alert, awake, and oriented x3. No focal neurologic deficits. Moving all the extremitie s. PSYCHIATRIC: Mood and affect normal. LABORATORY DATA: Potassium is 4.3, BUN is 62, creatinine is 7.5. ASSESSMENT AND PLAN: 1. End-stage renal disease. Continue on dialysis Sunday, Sunday, and Sunday. 2. Edema. Remove fluid. 3. Hyperkalemia, better. 4. Metabolic acidosis and anemia. 5. Hiccups. We will try baclofen. Plan was discussed with Dr. Luevano. We will follow.
[2018-07-21] MEDS: Acetaminophen 325 MG TAB PO PRN (22:25)
[2018-07-22 05:59] LABS: Anion Gap 21 mmol/L (10-20); BUN (Urea Nitrogen) 78 mg/dL (8.4-25.7); Calc. Creatinine Clearance 12 mL/min (70-130); Calcium 8.9 mg/dL (7.8-10.44); Carbon Dioxide 21 mmol/L (22-29); Chloride 93 mmol/L (98-107); Estimated GFR-MDRD 7; Glucose 219 mg/dL (70-105); Sodium 131 mmol/L (136-145)
[2018-07-22 06:06] LABS: Band 2 % (5-11); Hemoglobin 10.8 g/dL (14.0-18.0); Hypochromia SLIGHT = 6-15 cells (100X) (0-5/hpf); Lymphocytes 2 % (21-51); MDiff Complete? YES; Macrocytosis SLIGHT = 6-15 cells (100X) (0-5/hpf); Mean Corpuscular HGB CONC 32.1 g/dL (32.0-36.0); Mean Corpuscular Hemoglobin 32.5 pg (27.0-31.0); Mean Platelet Volume 9.4 fL (7.4-10.4); Monocytes 1 % (0-10); Neutrophil 95 % (42-75); PLT Morphology Comment Appears Adequate; Platelet Count 186 thou/uL (130-400); Polychromasia SLIGHT = 2-3 cells (100X) (0-2/hpf); RBC Distribution Width 13.2 % (11.5-14.5); Red Blood Cell (RBC) Count 3.32 mill/uL (4.70-6.10); White Blood Cell (WBC) Count 11.3 thou/uL (4.8-10.8)
[2018-07-22] MEDS: Piperacillin/Tazobactam 2.25 GM in Sodium Chloride 0.9% 100 ML IVPB SCH ×3 (06:11→21:28)
--- NOTE | 2018-07-22 11:03 | PQF ---
CLINICAL DOCUMENTATION IMPROVEMENT CLARIFICATION FORM: ICD-10 Updated PLEASE DO AN ADDENDUM TO THE PROGRESS NOTE WITH ANY DOCUMENTATION UPDATES OR ADDITIONS AND CARRY THROUGH TO DC SUMMARY. THANK YOU. DATE: 07/23/18 ATTN: DR. WILHELM Please exercise your independent, professional judgment in responding to the clarification form. Clinical indicators are provided on the bottom of this form for your review Please check appropriate box(es): [ x ] Sepsis due to: (Pna, UTI, gangrenous gall bladder, etc.) ____pneumonia___ Due to: [ ] Device (please specify) [ ] Implant [ ] Graft [ ] Infusion [ ] SIRS due to non-infectious process (please specify etiology) [ ] with organ dysfunction [ ] without organ dysfunction [ ] Severe sepsis with acute organ dysfunction of: (Examples: respiratory failure, encephalopathy, acute kidney failure, other) [ ] Septic Shock [ ] Localized infection without sepsis [ ] Other diagnosis [ ] Unable to determine In addition, please specify: Present on Admission (POA): [ x ] Yes [ ] No [ ] Unable to determine For continuity of documentation, please document condition throughout progress notes and discharge summary. Thank You. CLINICAL INDICATORS - SIGNS / SYMPTOMS / LABS ER NOTE: "HE HAS CLINICAL SEPSIS" WBC 12.6 (07/21) BANDS 43 (07/19) TEMP 101.3 RR 24 RISKS: PNEUMONIA TREATMENT: IV CIPRO (ER) IV FLAGYL (ER) IV ZOSYN (07/21-PRESENT) IV VANCOMYCIN (07/21-PRESENT) CARDIAC MONITORING SAP Pattern Marking Supervisor [employer] Winform Viewer (This form is maintained as a part of the permanent medical record) 2014 [employer]. All Rights Reserved MIRNA [email or web address] Office: [phone] [facility]
[2018-07-22 11:34] LABS: Vancomycin, Random 10.2 ug/mL (See Comment)
--- NOTE | 2018-07-22 11:53 | PRG ---
DATE OF SERVICE: 07/22/2018 SUBJECTIVE: A 57-year-old gentleman being seen for end-stage renal disease. The patient is tolerati ng dialysis well. Denies any nausea, vomiting, or chest pain. PHYSICAL EXAMINATION: GENERAL: Patient is awake, alert. VITAL SIGNS: Afebrile, pulse 70, breathing 16, blood pressure is 137/74. OBJECTIVE: See above. Awake, alert, in no acute distress. GENERAL APPEARANCE AND MENTAL STATUS: Fair. HEAD/NECK: Normocephalic. Atraumatic. EYES: EOMI. No deformity. EARS: Clear. No ulcers. NOSE: Intact. No lesions. MOUTH: Clear. No discharge. THROAT: Clear. No exudate. LUNGS: Clear. No crackles. CARDIAC: S1, S2. No rub. ABDOMEN: Benign. BS+. GENITALIA/RECTUM: Santamaria absent. BACK/EXTREMITIES: Edema 0+ Ulcer- NEUROLOGICAL: Alert and motor intact. SKIN: Rash- Bruise- LYMPHATICS: Edema- Ulcer- LABORATORY: Hemoglobin 10.8, potassium 4. ASSESSMENT: 1. Stage 6 chronic kidney disease. We will plan dialysis. 2. Hypertension, stable. 3. Anemia, stable. 4. Medication based on glomerular filtration rate are appropriate.
[2018-07-22] MEDS: Baclofen 10 MG TAB PO SCH ×3 (12:03→21:29)
[2018-07-22] MEDS: Heparin 5,000 UNITS/ML VIAL SC SCH ×3 (12:03→21:29)
[2018-07-22] MEDS ORDERED: Gabapentin 100 MG CAP PO SCH (13:30)
[2018-07-22] MEDS: chlorproMAZINE HCl 25 MG TAB PO PRN (14:44)
--- NOTE | 2018-07-22 17:44 | PDOC.CTH ---
Cardiology Progress Note - Subjective No new issues. Tolerating dialysis well. - Objective Vital Signs Temp Pulse Resp BP BP Pulse Ox 07/22/18 15:03 94 L 07/22/18 14:15 97.8 F 74 18 170/89 H 94 L 07/22/18 12:05 98.4 F 76 16 135/90 92 L 07/22/18 08:00 92 L 07/22/18 07:00 97.4 F L 70 17 134/78 92 L Admit Weight 187 lb 3.2 oz Weight 185 lb 4.8 oz 07/21/18 07/22/18 07/23/18 06:59 06:59 06:59 Intake Total 1230 1220 Output Total 2500 0 Balance -1270 1220 - Physical Examination General/Neuro: alert & oriented x3, NAD Neck: no JVD present Lungs: CTA, unlabored respirations Heart: RRR Abdomen: NT/ND Extremities: + edema B (1+) - Telemetry Telemetry Rhythm: NSR - Labs Result Diagrams: 07/22/18 05:26 07/22/18 05:26 Troponin/CKMB CK-MB (CK-2) 1.9 ng/mL (0-6.6) 07/19/18 13:13 Troponin I 0.104 ng/mL (< 0.028) H 07/19/18 19:31 - Assessment/Plan 1. Hx of afib. s/p ablation. 2. ESRD. PLAN: - No major arrhythmias. - Will sign out. Please call with any questions.
[2018-07-22] MEDS: Acetaminophen 500 MG TAB PO PRN (21:29)
--- NOTE | 2018-07-22 22:32 | PDOC.PN ---
- Subjective Encounter Start Date: 07/22/18 Encounter Start Time: 09:25 Says he doesn't feel great today. Still has some hiccups intermittently. - Objective Resuscitation Status: Resuscitation Status DNR:Do Not Resuscitate Vital Signs & Weight: Vital Signs (12 hours) Temp Pulse Resp BP Pulse Ox 07/22/18 19:55 97.6 F 69 16 168/85 H 92 L 07/22/18 15:03 94 L 07/22/18 14:15 97.8 F 74 18 170/89 H 94 L 07/22/18 12:05 98.4 F 76 16 135/90 92 L Weight Admit Weight 187 lb 3.2 oz Weight 185 lb 4.8 oz I&O: 07/21/18 07/22/18 07/23/18 06:59 06:59 06:59 Intake Total 1230 1220 240 Output Total 2500 0 Balance -1270 1220 240 Result Diagrams: 07/22/18 05:26 07/22/18 05:26 Additional Labs: Accuchecks 07/22/18 07/22/18 07/22/18 22:03 16:32 12:24 POC Glucose 200 H 185 H 146 H 07/22/18 07/21/18 05:58 17:09 POC Glucose 222 H 197 H Phys Exam - Physical Examination Constitutional: NAD Respiratory: no wheezing, no rales, no rhonchi, clear to auscultation bilateral Cardiovascular: RRR, no significant murmur Gastrointestinal: soft, non-tender, no distention Musculoskeletal: no edema Psychiatric: normal affect, A&O x 3 Dx/Plan (1) Volume overload Code(s): E87.70 - FLUID OVERLOAD, UNSPECIFIED Status: Resolved Comment: Currently not felt to be due to CHF. Related to missed HD sessions. Had HD last night and will likley have it again today. (2) Pneumonia Code(s): J18.9 - PNEUMONIA, UNSPECIFIED ORGANISM Status: Acute Qualifiers: Laterality: bilateral Comment: Repeat imaging confirmed bilateral infiltrates. Will change coverage to be more aggressive for likely aspiration pneumonia. Vanc/Zosyn. Fever is resolving. (3) Gastroenteritis Code(s): K52.9 - NONINFECTIVE GASTROENTERITIS AND COLITIS, UNSPECIFIED Status : Resolved Comment: Suspect related to uremia and not infectious. Stopping Cipro and Flagyl started in ED. (4) ESRD (end stage renal disease) Code(s): N18.6 - END STAGE RENAL DISEASE Status: Acute Comment: initiated on HD (5) Anxiety and depression Code(s): F41.9 - ANXIETY DISORDER, UNSPECIFIED; F32.9 - MAJOR DEPRESSIVE DISORDER, SINGLE EPISODE, UNSPECIFIED Status: Chronic Comment: Patient threatened self harm if an ambulance showed up at his home to take him to the hospital. He obviously aquiesced and came anyway. Denies suicidality. [facility] has been consulted. Will have them see him when he is medically stable. (6) Hypertension Code(s): I10 - ESSENTIAL (PRIMARY) HYPERTENSION Status: Chronic Qualifiers: Hypertension type: essential hypertension Qualified Code(s): I10 - Essential (primary) hypertension Comment: home meds. (7) H/O atrial flutter Code(s): Z86.79 - PERSONAL HISTORY OF OTHER DISEASES OF THE CIRCULATORY SYSTEM Status: Resolved Comment: Hx of ablation. (8) Uremia Code(s): N19 - UNSPECIFIED KIDNEY FAILURE Status: Acute Comment: Much improved with HD. (9) Hyperkalemia Code(s): E87.5 - HYPERKALEMIA Status: Resolved (10) Intractable hiccoughs Code(s): R06.6 - HICCOUGH Status: Acute Comment: Likely secondary to uremia. No resolution with Thorazine. Added Baclofen. Still persists. discssed with Nephrology. Will add Gabapentin. (11) Junctional cardiac arrhythmia Code(s): I49.8 - OTHER SPECIFIED CARDIAC ARRHYTHMIAS Status: Acute Comment: Appreciate cardiology consult. No new interventions. - Plan * Continue abx. * Adding meds to resolve the hiccups. * Can likely change to po abx tomorrow. * If on po abx, and hiccups resolved, have [facility] eval the patient. * Will need some HH at discharge. * PT eval for generalized weakness that has been present for a week or two. * May need rehab.
[2018-07-23] MEDS: Piperacillin/Tazobactam 2.25 GM in Sodium Chloride 0.9% 100 ML IVPB SCH ×3 (05:22→23:02)
[2018-07-23] MEDS: HumaLOG 300 UNITS/3 ML VIAL SC PRN (05:32)
[2018-07-23] MEDS ORDERED: traMADol HCl 50 MG TAB PO PRN (07:49)
[2018-07-23] MEDS: Baclofen 10 MG TAB PO SCH ×3 (09:11→21:17)
[2018-07-23] MEDS: Carvedilol 25 MG TAB PO SCH ×2 (09:12→21:18)
[2018-07-23] MEDS: NIFEdipine XL 60 MG TAB PO SCH (09:12)
[2018-07-23] MEDS: hydrALAZINE 25 MG TAB PO SCH ×3 (09:12→21:18)
[2018-07-23] MEDS: Heparin 5,000 UNITS/ML VIAL SC SCH ×3 (09:12→21:18)
[2018-07-23] MEDS: Gabapentin 100 MG CAP PO SCH (09:12)
--- NOTE | 2018-07-23 10:31 | PDOC.PN ---
- Subjective Encounter Start Date: 07/23/18 Encounter Start Time: 08:00 -: old records requested/rev Patient seen and examined. No new complaints. No overnight events - Objective Resuscitation Status: Resuscitation Status DNR:Do Not Resuscitate MAR Reviewed: Yes Vital Signs & Weight: Vital Signs (12 hours) Temp Pulse Resp BP BP Pulse Ox 07/23/18 09:12 63 07/23/18 08:00 98 07/23/18 07:18 97.6 F 63 20 155/72 H 98 07/23/18 05:10 98.2 F 60 16 158/88 H 93 L 07/23/18 00:30 98.4 F 59 L 18 166/83 H 96 Weight Admit Weight 187 lb 3.2 oz Weight 185 lb 4.8 oz I&O: 07/22/18 07/23/18 07/24/18 06:59 06:59 06:59 Intake Total 1220 740 240 Output Total 0 Balance 1220 740 240 Result Diagrams: 07/22/18 05:26 07/22/18 05:26 Additional Labs: Accuchecks 07/23/18 07/23/18 07/22/18 07:29 05:32 22:03 POC Glucose 178 H 179 H 200 H 07/22/18 07/22/18 07/21/18 16:32 12:24 17:09 POC Glucose 185 H 146 H 197 H Radiology Reviewed by me: Yes EKG Reviewed by me: Yes Phys Exam - Physical Examination Constitutional: NAD HEENT: PERRLA, moist MMs, sclera anicteric Neck: no JVD, supple Respiratory: no wheezing, no rales, no rhonchi Cardiovascular: RRR, no significant murmur, no rub Gastrointestinal: soft, non-tender, no distention, positive bowel sounds Musculoskeletal: no edema, pulses present Neurological: non-focal, normal sensation Lymphatic: no nodes Psychiatric: normal affect Skin: no rash, normal turgor Dx/Plan (1) Intractable hiccoughs Code(s): R06.6 - HICCOUGH Status: Acute Comment: due to uremia (2) Junctional cardiac arrhythmia Code(s): I49.8 - OTHER SPECIFIED CARDIAC ARRHYTHMIAS Status: Acute Comment: (3) Pneumonia Code(s): J18.9 - PNEUMONIA, UNSPECIFIED ORGANISM Status: Acute Qualifiers: Laterality: bilateral Comment: (4) Uremia Code(s): N19 - UNSPECIFIED KIDNEY FAILURE Status: Acute Comment: (5) Anxiety and depression Code(s): F41.9 - ANXIETY DISORDER, UNSPECIFIED; F32.9 - MAJOR DEPRESSIVE DISORDER, SINGLE EPISODE, UNSPECIFIED Status: Chronic Comment: Patient threatened self harm if an ambulance showed up at his home to take him to the hospital. He obviously aquiesced and came anyway. Denies suicidality. [facility] has been consulted. Will have them see him when he is medically stable. (6) ESRD on hemodialysis Code(s): N18.6 - END STAGE RENAL DISEASE; Z99.2 - DEPENDENCE ON RENAL DIALYSIS Status: Chronic (7) Hypertension Code(s): I10 - ESSENTIAL (PRIMARY) HYPERTENSION Status: Chronic Qualifiers: Hypertension type: essential hypertension Qualified Code(s): I10 - Essential (primary) hypertension Comment: home meds. (8) Macrocytic anemia Code(s): D53.9 - NUTRITIONAL ANEMIA, UNSPECIFIED Status: Chronic (9) Gastroenteritis Code(s): K52.9 - NONINFECTIVE GASTROENTERITIS AND COLITIS, UNSPECIFIED Status : Resolved Comment: (10) Hyperkalemia Code(s): E87.5 - HYPERKALEMIA Status: Resolved (11) Volume overload Code(s): E87.70 - FLUID OVERLOAD, UNSPECIFIED Status: Resolved Comment: - Plan cont current plan of care, continue antibiotics * medication reviewed as below * symptomatic treatment * continue vancomycin and zosyn * HD as per nephrology * overall stable and improving * may need placement * start PT and discahrge planning. Review of Systems - Review of Systems ENT: negative: Ear Pain, Ear Discharge, Nose Pain, Nose Discharge, Nose Congestion, Mouth Pain, Mouth Swelling, Throat Pain, Throat Swelling, Other Respiratory: negative: Cough, Dry, Shortness of Breath, Hemoptysis, SOB with Excertion, Pleuritic Pain, Sputum, Wheezing Cardiovascular: negative: chest pain, palpitations, orthopnea, paroxysmal nocturnal dyspnea, edema, light headedness, other Gastrointestinal: negative: Nausea, Vomiting, Abdominal Pain, Diarrhea, Constipation, Melena, Hematochezia, Other Genitourinary: negative: Dysuria, Frequency, Incontinence, Hematuria, Retention , Other Musculoskeletal: negative: Neck Pain, Shoulder Pain, Arm Pain, Back Pain, Hand Pain, Leg Pain, Foot Pain, Other Other: not reliable due to his level of cognitive status - Medications/Allergies Allergies/Adverse Reactions: Allergies Allergy/AdvReac Type Severity Reaction Status Date / Time No Known Allergies Allergy Verified 07/19/18 21:03 Medications: Current Medications Acetaminophen (Tylenol) 650 mg PO Q6H PRN PRN Reason: Headache/Fever or Pain Last Admin: 07/21/18 22:25 Dose: 650 mg Acetaminophen (Tylenol) 1,000 mg PO Q6H PRN PRN Reason: Moderate to Severe Pain (6-10) Last Admin: 07/22/18 21:29 Dose: 1,000 mg Baclofen (Lioresal) 5 mg PO TID [facility] Last Admin: 07/23/18 09:11 Dose: 5 mg Carvedilol (Coreg) 25 mg PO BID [facility] Last Admin: 07/23/18 09:12 Dose: 25 mg Chlorpromazine HCl (Thorazine) 25 mg PO Q6H PRN PRN Reason: Restlessness Last Admin: 07/22/18 14:44 Dose: 25 mg Dextrose/Water (Dextrose 50%) 25 gm SLOW IVP PRN PRN PRN Reason: Hypoglycemia Gabapentin (Neurontin) 100 mg PO DAILY [facility] Last Admin: 07/23/18 09:12 Dose: 100 mg Glucagon (Glucagon) 1 mg IM PRN PRN PRN Reason: Hypoglycemia Heparin Sodium (Porcine) (Heparin) 5,000 units SC TID [facility] Last Admin: 07/23/18 09:12 Dose: 5,000 units Hydralazine HCl (Apresoline) 100 mg PO TID [facility] Last Admin: 07/23/18 09:12 Dose: 100 mg Dextrose/Water (D5w) 1,000 mls @ 0 mls/hr IV .Q0M PRN PRN Reason: Hypoglycemia Piperacillin Sod/Tazobactam (Sod 2.25 gm/ Sodium Chloride) 100 mls @ 200 mls/ hr IVPB Q8HR [facility] Last Admin: 07/23/18 05:22 Dose: 100 mls Vancomycin HCl 1.25 gm/ Sodium (Chloride) 250 mls @ 166.667 mls/hr IVPB [facility] Vancomycin HCl 1 gm/ Device 200 mls @ 200 mls/hr IVPB [facility] Vancomycin HCl 750 mg/ Sodium (Chloride) 250 mls @ 250 mls/hr IVPB [facility] Vancomycin HCl 500 mg/ Sodium (Chloride) 100 mls @ 100 mls/hr IVPB [facility] Insulin Human Lispro (Humalog) 0 units SC .MILD SLIDING SCALE PRN PRN Reason: Mild Correctional Scale Last Admin: 07/23/18 05:32 Dose: 2 unit Miscellaneous Medication (Pharmacy To Dose) 1 each IVPB ONE PRN PRN Reason: DOSING Stop: 08/20/18 12:00 Nifedipine (Procardia Xl) 60 mg PO DAILY [facility] Last Admin: 07/23/18 09:12 Dose: 60 mg Hold Vancomycin For (Level >20) 0 each FS .AT DIALYSIS [facility] Sodium Chloride (Flush - Normal Saline) 10 ml IVF Q12HR [facility] Last Admin: 07/23/18 09:12 Dose: 10 ml Sodium Chloride (Flush - Normal Saline) 10 ml IVF PRN PRN PRN Reason: Saline Flush Last Admin: 07/22/18 06:11 Dose: 10 ml Tramadol HCl (Ultram) 50 mg PO Q6H PRN PRN Reason: Mild-Moderate Pain (1-5)
[2018-07-23 14:15] VITALS: BMI 25.8
--- NOTE | 2018-07-23 19:17 | PRG ---
DATE OF SERVICE: 07/23/2018 SUBJECTIVE: This is a 57-year-old gentleman being seen for end-stage renal disease. The patient denies nausea, vomiting, or chest pain. OBJECTIVE: GENERAL: The patient is awake. VITAL SIGNS: Afebrile, pulse 59, breathing 16, blood pressure 132/78. GENERAL APPEARANCE AND MENTAL STATUS: Fair. HEAD/NECK: Normocephalic. Atraumatic. EYES: EOMI. No deformity. EARS: Clear. No ulcers. NOSE: Intact. No lesions. MOUTH: Clear. No discharge. THROAT: Clear. No exudate. LUNGS: Clear. No crackles. CARDIAC: S1, S2. No rub. ABDOMEN: Benign. BS+. GENITALIA/RECTUM: Santamaria absent. BACK/EXTREMITIES: Edema 0+ Ulcer- NEUROLOGICAL: Alert and motor intact. SKIN: Rash- Bruise- LYMPHATICS: Edema- Ulcer- LABORATORY DATA: Show hemoglobin 10.8. ASSESSMENT AND PLAN: 1. Stage6_ chronic kidney disease. Continue hemodialysis. 2. Hypertension, stable. 3. Anemia, stable. Medication based on glomerular filtration rate appropriate. MTDD
--- NOTE | 2018-07-23 20:53 | CT ---
CT HEAD WITHOUT CONTRAST: 07/23/18 Multiple axial tomograms obtained through the head without IV enhancement. INDICATION: Change in mental status. Ventricles have normal size and position. No evidence of mass, hemorrhage, or infarct. Sinuses and ma stoids appear clear. IMPRESSION: No evidence of acute process. POS: [facility]
[2018-07-23] MEDS ORDERED: Aspirin 300 MG Suppository PR SCH (21:30)
[2018-07-24] MEDS: Piperacillin/Tazobactam 2.25 GM in Sodium Chloride 0.9% 100 ML IVPB SCH ×3 (05:16→21:04)
[2018-07-24] MEDS: Baclofen 10 MG TAB PO SCH ×3 (07:38→20:15)
[2018-07-24] MEDS: Carvedilol 25 MG TAB PO SCH ×2 (07:39→20:18)
[2018-07-24] MEDS: Heparin 5,000 UNITS/ML VIAL SC SCH ×3 (07:39→20:18)
[2018-07-24] MEDS: Gabapentin 100 MG CAP PO SCH (07:39)
[2018-07-24] MEDS: NIFEdipine XL 60 MG TAB PO SCH (07:40)
[2018-07-24] MEDS: hydrALAZINE 25 MG TAB PO SCH ×3 (07:40→20:17)
[2018-07-24 07:54] LABS: Vancomycin, Random 13.9 ug/mL (See Comment)
--- NOTE | 2018-07-24 10:52 | PDOC.PN ---
- Subjective Encounter Start Date: 07/24/18 Encounter Start Time: 09:30 pt seen at HD unit, he is sleepy Patient seen and examined. No overnight events - Objective Resuscitation Status: Resuscitation Status DNR:Do Not Resuscitate MAR Reviewed: Yes Vital Signs & Weight: Vital Signs (12 hours) Temp Pulse Resp BP BP Pulse Ox 07/24/18 08:00 97 07/24/18 07:40 50 L 07/24/18 07:32 50 L 16 95 07/24/18 03:59 97.2 F L 58 L 20 124/61 98 07/24/18 00:24 51 L 16 95 07/24/18 00:00 97.6 F 56 L 16 104/56 L 93 L 07/23/18 23:01 47 L 18 94 L Weight Admit Weight 187 lb 3.2 oz Weight 185 lb 4.8 oz I&O: 07/23/18 07/24/18 07/25/18 06:59 06:59 06:59 Intake Total 740 920 Balance 740 920 Result Diagrams: 07/22/18 05:26 07/22/18 05:26 Additional Labs: Accuchecks 07/24/18 07/23/18 07/23/18 04:02 19:31 15:44 POC Glucose 209 H 168 H 176 H 07/23/18 11:12 POC Glucose 174 H Phys Exam - Physical Examination Constitutional: NAD HEENT: PERRLA, sclera anicteric Neck: no JVD, supple Respiratory: no wheezing, no rales, no rhonchi Cardiovascular: RRR, no significant murmur, no rub Gastrointestinal: soft, non-tender, no distention, positive bowel sounds Musculoskeletal: no edema, pulses present Neurological: non-focal Lymphatic: no nodes Psychiatric: normal affect Skin: no rash, normal turgor Dx/Plan (1) Intractable hiccoughs Code(s): R06.6 - HICCOUGH Status: Acute Comment: due to uremia (2) Junctional cardiac arrhythmia Code(s): I49.8 - OTHER SPECIFIED CARDIAC ARRHYTHMIAS Status: Acute Comment: (3) Pneumonia Code(s): J18.9 - PNEUMONIA, UNSPECIFIED ORGANISM Status: Acute Qualifiers: Laterality: bilateral Comment: (4) Uremia Code(s): N19 - UNSPECIFIED KIDNEY FAILURE Status: Acute Comment: (5) Anxiety and depression Code(s): F41.9 - ANXIETY DISORDER, UNSPECIFIED; F32.9 - MAJOR DEPRESSIVE DISORDER, SINGLE EPISODE, UNSPECIFIED Status: Chronic Comment: Patient threatened self harm if an ambulance showed up at his home to take him to the hospital. He obviously aquiesced and came anyway. Denies suicidality. [facility] has been consulted. Will have them see him when he is medically stable. (6) ESRD on hemodialysis Code(s): N18.6 - END STAGE RENAL DISEASE; Z99.2 - DEPENDENCE ON RENAL DIALYSIS Status: Chronic (7) Hypertension Code(s): I10 - ESSENTIAL (PRIMARY) HYPERTENSION Status: Chronic Qualifiers: Hypertension type: essential hypertension Qualified Code(s): I10 - Essential (primary) hypertension Comment: home meds. 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 Review of Systems - Review of Systems Other: not reliable due to his level of cognitive status - Medications/Allergies Allergies/Adverse Reactions: Allergies Allergy/AdvReac Type Severity Reaction Status Date / Time No Known Allergies Allergy Verified 07/19/18 21:03 Medications: Current Medications Acetaminophen (Tylenol) 650 mg PO Q6H PRN PRN Reason: Headache/Fever or Pain Last Admin: 07/21/18 22:25 Dose: 650 mg Acetaminophen (Tylenol) 1,000 mg PO Q6H PRN PRN Reason: Moderate to Severe Pain (6-10) Last Admin: 07/22/18 21:29 Dose: 1,000 mg Albuterol/Ipratropium (Duoneb) 3 ml NEB [id number]-MR [facility] Last Admin: 07/24/18 07:32 Dose: 3 ml Baclofen (Lioresal) 5 mg PO TID [facility] Last Admin: 07/24/18 07:38 Dose: Not Given Carvedilol (Coreg) 25 mg PO BID [facility] Last Admin: 07/24/18 07:39 Dose: Not Given Chlorpromazine HCl (Thorazine) 25 mg PO Q6H PRN PRN Reason: Restlessness Last Admin: 07/22/18 14:44 Dose: 25 mg Dextrose/Water (Dextrose 50%) 25 gm SLOW IVP PRN PRN PRN Reason: Hypoglycemia Gabapentin (Neurontin) 100 mg PO DAILY [facility] Last Admin: 07/24/18 07:39 Dose: Not Given Glucagon (Glucagon) 1 mg IM PRN PRN PRN Reason: Hypoglycemia Heparin Sodium (Porcine) (Heparin) 5,000 units SC TID [facility] Last Admin: 07/24/18 07:39 Dose: Not Given Hydralazine HCl (Apresoline) 100 mg PO TID [facility] Last Admin: 07/24/18 07:40 Dose: Not Given Dextrose/Water (D5w) 1,000 mls @ 0 mls/hr IV .Q0M PRN PRN Reason: Hypoglycemia Piperacillin Sod/Tazobactam (Sod 2.25 gm/ Sodium Chloride) 100 mls @ 200 mls/ hr IVPB Q8HR [facility] Last Admin: 07/24/18 05:16 Dose: 100 mls Vancomycin HCl 1.25 gm/ Sodium (Chloride) 250 mls @ 166.667 mls/hr IVPB [facility] Vancomycin HCl 1 gm/ Device 200 mls @ 200 mls/hr IVPB [facility] Vancomycin HCl 750 mg/ Sodium (Chloride) 250 mls @ 250 mls/hr IVPB [facility] Vancomycin HCl 500 mg/ Sodium (Chloride) 100 mls @ 100 mls/hr IVPB [facility] Insulin Human Lispro (Humalog) 0 units SC .MILD SLIDING SCALE PRN PRN Reason: Mild Correctional Scale Last Admin: 07/23/18 05:32 Dose: 2 unit Miscellaneous Medication (Pharmacy To Dose) 1 each IVPB ONE PRN PRN Reason: DOSING Stop: 08/20/18 12:00 Nifedipine (Procardia Xl) 60 mg PO DAILY [facility] Last Admin: 07/24/18 07:40 Dose: Not Given Hold Vancomycin For (Level >20) 0 each FS .AT DIALYSIS [facility] Sodium Chloride (Flush - Normal Saline) 10 ml IVF Q12HR [facility] Last Admin: 07/24/18 07:40 Dose: Not Given Sodium Chloride (Flush - Normal Saline) 10 ml IVF PRN PRN PRN Reason: Saline Flush Last Admin: 07/22/18 06:11 Dose: 10 ml Tramadol HCl (Ultram) 50 mg PO Q6H PRN PRN Reason: Mild-Moderate Pain (1-5)
--- NOTE | 2018-07-24 12:09 | PRG ---
DATE OF SERVICE: 07/24/2018 SUBJECTIVE: This is a 57-year-old gentleman being seen for end-stage renal disease. The patient den ies any nausea, vomiting or chest pain. PHYSICAL EXAMINATION: GENERAL: Patient is awake, alert. VITAL SIGNS: Afebrile, pulse 50, breathing 16, blood pressure 130/70. OBJECTIVE: See above. Awake, alert, in no acute distress. GENERAL APPEARANCE AND MENTAL STATUS: Fair. HEAD/NECK: Normocephalic. Atraumatic. EYES: EOMI. No deformity. EARS: Clear. No ulcers. NOSE: Intact. No lesions. MOUTH: Clear. No discharge. THROAT: Clear. No exudate. LUNGS: Clear. No crackles. CARDIAC: S1, S2. No rub. ABDOMEN: Benign. BS+. GENITALIA/RECTUM: Santamaria absent. BACK/EXTREMITIES: Edema 0+ Ulcer- NEUROLOGICAL: Alert and motor intact. SKIN: Rash- Bruise- LYMPHATICS: Edema- Ulcer- LABORATORY: Hemoglobin 10.8. ASSESSMENT AND RECOMMENDATIONS: 1. Stage 6 chronic kidney disease, continue hemodialysis. 2. Hypertension, stable. 3. Anemia, stable. 4. Medication based on glomerular filtration rate are appropriate.
[2018-07-24 13:45] LABS: Hemoglobin 10.1 g/dL (14.0-18.0)
[2018-07-24] MEDS: Acetaminophen 325 MG TAB PO PRN (17:50)
[2018-07-24] MEDS ORDERED: Ondansetron ODT 4 MG TAB PO PRN (18:15)
[2018-07-24] MEDS ORDERED: Acetaminophen 500 MG TAB PO PRN (18:16)
[2018-07-24] MEDS ORDERED: diphenhydrAMINE 25 MG CAP PO PRN (18:18)
[2018-07-24] MEDS: HumaLOG 300 UNITS/3 ML VIAL SC PRN (23:09)
[2018-07-25] MEDS: Acetaminophen 325 MG TAB PO PRN ×3 (00:35→14:34)
[2018-07-25] MEDS: Piperacillin/Tazobactam 2.25 GM in Sodium Chloride 0.9% 100 ML IVPB SCH ×3 (04:55→22:19)
[2018-07-25] MEDS: HumaLOG 300 UNITS/3 ML VIAL SC PRN ×3 (04:59→17:39)
[2018-07-25] MEDS ORDERED: Cepastat Lozenges 1 LOZ PO PRN (07:37)
[2018-07-25] MEDS ORDERED: Ondansetron ODT 4 MG TAB PO PRN (07:37)
[2018-07-25] MEDS ORDERED: Senokot S 8.6-50 MG TAB PO PRN (07:37)
[2018-07-25] MEDS ORDERED: Zolpidem Tartrate 5 MG TAB PO PRN (07:37)
[2018-07-25] MEDS ORDERED: Eucerin (Mineral Oil/Petrolatum,White) 30 gm Jar TOP PRN (07:37)
[2018-07-25] MEDS ORDERED: hydrALAZINE 20 MG/ML VIAL SLOW IVP PRN (07:37)
[2018-07-25] MEDS ORDERED: Artificial Tears 18 DROP/0.9 ML EA EYE PRN (07:37)
[2018-07-25] MEDS ORDERED: Loperamide HCl 2 MG CAP PO PRN (07:37)
[2018-07-25] MEDS ORDERED: Diabetic Tussin 200 MG/10 ML UDCUP PO PRN (07:37)
[2018-07-25] MEDS: hydrALAZINE 25 MG TAB PO SCH ×3 (07:53→20:20)
[2018-07-25] MEDS: Gabapentin 100 MG CAP PO SCH (07:54)
[2018-07-25] MEDS: Carvedilol 25 MG TAB PO SCH ×2 (07:54→20:21)
[2018-07-25] MEDS: NIFEdipine XL 60 MG TAB PO SCH (07:54)
[2018-07-25] MEDS: Baclofen 10 MG TAB PO SCH ×3 (07:55→20:18)
[2018-07-25] MEDS: Heparin 5,000 UNITS/ML VIAL SC SCH ×3 (07:55→20:21)
[2018-07-25] MEDS: Saccharomyces boulardii 250 MG CAP PO SCH (08:42)
--- NOTE | 2018-07-25 09:35 | PDOC.PN ---
- Subjective Encounter Start Date: 07/25/18 Encounter Start Time: 07:40 Patient seen and examined. No new complaints. No overnight events - Objective Resuscitation Status: Resuscitation Status DNR:Do Not Resuscitate MAR Reviewed: Yes Vital Signs & Weight: Vital Signs (12 hours) Temp Pulse Resp BP BP BP Pulse Ox 07/25/18 07:54 63 07/25/18 07:53 63 167/81 H 07/25/18 07:24 98.0 F 58 L 16 167/81 H 98 07/25/18 07:23 96 07/25/18 07:22 59 L 18 96 07/25/18 00:59 57 L 16 98 07/25/18 00:00 98.7 F 54 L 20 137/71 92 L Weight Admit Weight 187 lb 3.2 oz Weight 185 lb 4.8 oz I&O: 07/24/18 07/25/18 07/26/18 06:59 06:59 06:59 Intake Total 920 500 Balance 920 500 Result Diagrams: 07/24/18 13:17 07/22/18 05:26 Additional Labs: Accuchecks 07/25/18 07/24/18 04:57 22:48 POC Glucose 176 H 246 H Phys Exam - Physical Examination Constitutional: NAD HEENT: PERRLA, moist MMs, sclera anicteric Neck: no JVD, supple Respiratory: no wheezing, no rales, no rhonchi Cardiovascular: RRR, no significant murmur, no rub Gastrointestinal: soft, non-tender, no distention, positive bowel sounds Musculoskeletal: no edema, pulses present Neurological: non-focal, normal sensation Lymphatic: no nodes Psychiatric: normal affect, A&O x 3 Skin: no rash, normal turgor Dx/Plan (1) Intractable hiccoughs Code(s): R06.6 - HICCOUGH Status: Acute Comment: due to uremia (2) Junctional cardiac arrhythmia Code(s): I49.8 - OTHER SPECIFIED CARDIAC ARRHYTHMIAS Status: Acute Comment: (3) Pneumonia Code(s): J18.9 - PNEUMONIA, UNSPECIFIED ORGANISM Status: Acute Qualifiers: Laterality: bilateral Comment: (4) Uremia Code(s): N19 - UNSPECIFIED KIDNEY FAILURE Status: Acute Comment: (5) Anxiety and depression Code(s): F41.9 - ANXIETY DISORDER, UNSPECIFIED; F32.9 - MAJOR DEPRESSIVE DISORDER, SINGLE EPISODE, UNSPECIFIED Status: Chronic Comment: Patient threatened self harm if an ambulance showed up at his home to take him to the hospital. He obviously aquiesced and came anyway. Denies suicidality. [facility] has been consulted. Will have them see him when he is medically stable. (6) ESRD on hemodialysis Code(s): N18.6 - END STAGE RENAL DISEASE; Z99.2 - DEPENDENCE ON RENAL DIALYSIS Status: Chronic (7) Hypertension Code(s): I10 - ESSENTIAL (PRIMARY) HYPERTENSION Status: Chronic Qualifiers: Hypertension type: essential hypertension Qualified Code(s): I10 - Essential (primary) hypertension Comment: home meds. (8) Macrocytic anemia Code(s): D53.9 - NUTRITIONAL ANEMIA, UNSPECIFIED Status: Chronic (9) Gastroenteritis Code(s): K52.9 - NONINFECTIVE GASTROENTERITIS AND COLITIS, UNSPECIFIED Status : Resolved Comment: (10) Hyperkalemia Code(s): E87.5 - HYPERKALEMIA Status: Resolved (11) Volume overload Code(s): E87.70 - FLUID OVERLOAD, UNSPECIFIED Status: Resolved Comment: - Plan cont current plan of care, continue antibiotics * medication reviewed as below * symptomatic treatment * continue vancomycin and zosyn * In out catheter as needed * may need placement * continue PT. Review of Systems - Review of Systems ENT: negative: Ear Pain, Ear Discharge, Nose Pain, Nose Discharge, Nose Congestion, Mouth Pain, Mouth Swelling, Throat Pain, Throat Swelling, Other Respiratory: negative: Cough, Dry, Shortness of Breath, Hemoptysis, SOB with Excertion, Pleuritic Pain, Sputum, Wheezing Cardiovascular: negative: chest pain, palpitations, orthopnea, paroxysmal nocturnal dyspnea, edema, light headedness, other Gastrointestinal: negative: Nausea, Vomiting, Abdominal Pain, Diarrhea, Constipation, Melena, Hematochezia, Other Genitourinary: negative: Dysuria, Frequency, Incontinence, Hematuria, Retention , Other Musculoskeletal: negative: Neck Pain, Shoulder Pain, Arm Pain, Back Pain, Hand Pain, Leg Pain, Foot Pain, Other - Medications/Allergies Allergies/Adverse Reactions: Allergies Allergy/AdvReac Type Severity Reaction Status Date / Time No Known Allergies Allergy Verified 07/19/18 21:03 Medications: Current Medications Acetaminophen (Tylenol) 650 mg PO Q6H PRN PRN Reason: Headache/Fever or Pain Last Admin: 07/25/18 08:02 Dose: 650 mg Acetaminophen (Tylenol) 1,000 mg PO Q6H PRN PRN Reason: Moderate to Severe Pain (6-10) Last Admin: 07/22/18 21:29 Dose: 1,000 mg Acetaminophen (Tylenol) 500 mg PO HSPRN PRN PRN Reason: .SLEEP Last Admin: 07/24/18 20:17 Dose: 500 mg Albuterol/Ipratropium (Duoneb) 3 ml NEB [id number]-DK [facility] Last Admin: 07/25/18 07:22 Dose: 3 ml Artificial Tears (Tears Naturale) 2 drop EA EYE PRN PRN PRN Reason: Dry Eyes Baclofen (Lioresal) 5 mg PO TID [facility] Last Admin: 07/25/18 07:55 Dose: 5 mg Carvedilol (Coreg) 25 mg PO BID [facility] Last Admin: 07/25/18 07:54 Dose: Not Given Chlorpromazine HCl (Thorazine) 25 mg PO Q6H PRN PRN Reason: Restlessness Last Admin: 07/22/18 14:44 Dose: 25 mg Dextrose/Water (Dextrose 50%) 25 gm SLOW IVP PRN PRN PRN Reason: Hypoglycemia Diphenhydramine HCl (Benadryl) 25 mg PO HSPRN PRN PRN Reason: Insomnia Last Admin: 07/24/18 20:17 Dose: 25 mg Gabapentin (Neurontin) 100 mg PO DAILY [facility] Last Admin: 07/25/18 07:54 Dose: 100 mg Glucagon (Glucagon) 1 mg IM PRN PRN PRN Reason: Hypoglycemia Guaifenesin (Robitussin Sf) 200 mg PO Q4H PRN PRN Reason: Cough Heparin Sodium (Porcine) (Heparin) 5,000 units SC TID [facility] Last Admin: 07/25/18 07:55 Dose: 5,000 units Hydralazine HCl (Apresoline) 100 mg PO TID [facility] Last Admin: 07/25/18 07:53 Dose: 100 mg Hydralazine HCl (Apresoline) 10 mg SLOW IVP Q4H PRN PRN Reason: SBP > 180 and HR < 70 Dextrose/Water (D5w) 1,000 mls @ 0 mls/hr IV .Q0M PRN PRN Reason: Hypoglycemia Piperacillin Sod/Tazobactam (Sod 2.25 gm/ Sodium Chloride) 100 mls @ 200 mls/ hr IVPB Q8HR [facility] Last Admin: 07/25/18 04:55 Dose: 100 mls Vancomycin HCl 1.25 gm/ Sodium (Chloride) 250 mls @ 166.667 mls/hr IVPB [facility]CALL [facility] Vancomycin HCl 1 gm/ Device 200 mls @ 200 mls/hr IVPB [facility] Vancomycin HCl 750 mg/ Sodium (Chloride) 250 mls @ 250 mls/hr IVPB [facility] Last Admin: 07/24/18 12:28 Dose: 250 mls Vancomycin HCl 500 mg/ Sodium (Chloride) 100 mls @ 100 mls/hr IVPB [facility] Insulin Human Lispro (Humalog) 0 units SC .MILD SLIDING SCALE PRN PRN Reason: Mild Correctional Scale Last Admin: 07/25/18 04:59 Dose: 2 unit Loperamide HCl (Imodium) 2 mg PO PRN PRN PRN Reason: Diarrhea/Loose Stools Mineral Oil/White Petrolatum (Eucerin Cream) 0 gm TOP BIDPRN PRN PRN Reason: Dry Skin Miscellaneous Medication (Pharmacy To Dose) 1 each IVPB ONE PRN PRN Reason: DOSING Stop: 08/20/18 12:00 Nifedipine (Procardia Xl) 60 mg PO DAILY [facility] Last Admin: 07/25/18 07:54 Dose: 60 mg Hold Vancomycin For (Level >20) 0 each FS .AT DIALYSIS [facility] Ondansetron HCl (Zofran Odt) 4 mg PO Q6H PRN PRN Reason: Nausea/Vomiting Pantoprazole Sodium (Protonix) 40 mg PO HS [facility] Last Admin: 07/24/18 20:17 Dose: 40 mg Saccharomyces Boulardii (Florastor) 250 mg PO DAILY [facility] Last Admin: 07/25/18 08:42 Dose: 250 mg Senna/Docusate Sodium (Senokot S) 2 tab PO BID PRN PRN Reason: Constipation Sodium Chloride (Flush - Normal Saline) 10 ml IVF Q12HR [facility] Last Admin: 07/25/18 07:55 Dose: 10 ml Sodium Chloride (Flush - Normal Saline) 10 ml IVF PRN PRN PRN Reason: Saline Flush Last Admin: 07/22/18 06:11 Dose: 10 ml Throat Lozenges (Cepastat Lozenges) 1 uyen PO Q2H PRN PRN Reason: Sore Throat Tramadol HCl (Ultram) 50 mg PO Q6H PRN PRN Reason: Mild-Moderate Pain (1-5) Zolpidem Tartrate (Ambien) 5 mg PO HSPRN PRN PRN Reason: Insomnia
--- NOTE | 2018-07-25 11:38 | PRG ---
DATE OF SERVICE: 07/25/2018 SUBJECTIVE: This is a 57-year-old gentleman, being seen for end-stage renal disease. The patient de nies any nausea, vomiting, chest pain. PHYSICAL EXAMINATION: GENERAL: The patient is awake and alert, in no acute distress. VITAL SIGNS: Pulse , breathing 16, blood pressure 167/81. GENERAL APPEARANCE AND MENTAL STATUS: Fair. HEAD/NECK: Normocephalic. Atraumatic. EYES: EOMI. No deformity. EARS: Clear. No ulcers. NOSE: Intact. No lesions. MOUTH: Clear. No discharge. THROAT: Clear. No exudate. LUNGS: Clear. No crackles. CARDIAC: S1, S2. No rub. ABDOMEN: Benign. BS+. GENITALIA/RECTUM: Santamaria absent. BACK/EXTREMITIES: Edema 0+. Ulcer-. NEUROLOGICAL: Alert and motor intact. SKIN: Rash-. Bruise-. LYMPHATICS: Edema-. Ulcer-. LABORATORY DATA: Hemoglobin 10.1. ASSESSMENT AND RECOMMENDATIONS: 1. Stage 6 chronic kidney disease. Continue hemodialysis per schedule. 2. Hypertension, stable. 3. Anemia, stable. 4. Medications based on glomerular filtration rate are appropriate.
[2018-07-26] MEDS: Piperacillin/Tazobactam 2.25 GM in Sodium Chloride 0.9% 100 ML IVPB SCH (05:30)
[2018-07-26 05:53] LABS: #Eosinphils 0.3 thou/uL (0.0-0.7); #Lymphocytes 0.8 thou/uL (1.20-3.40); #Monocytes 0.3 thou/uL (0.11-0.59); #Neutrophils 6.6 thou/uL (1.40-6.50); %Basophils 0.3 % (0.0-1.0); %Eosinophils 3.3 % (0.0-10.0); %Lymphocytes 10.2 % (21.0-51.0); %Monocytes 4.1 % (0.0-10.0); %Neutrophils 82.1 % (42.0-75.0); Hemoglobin 9.3 g/dL (14.0-18.0); Mean Corpuscular HGB CONC 31.7 g/dL (32.0-36.0); Mean Corpuscular Hemoglobin 31.5 pg (27.0-31.0); Mean Corpuscular Volume 99.5 fL (78.0-98.0); Mean Platelet Volume 9.1 fL (7.4-10.4); Platelet Count 188 thou/uL (130-400); RBC Distribution Width 13.2 % (11.5-14.5); Red Blood Cell (RBC) Count 2.95 mill/uL (4.70-6.10)
[2018-07-26 06:13] LABS: ALT (SGPT) 10 U/L (8-55); AST (SGOT) 15 U/L (5-34); Alkaline Phosphatase 85 U/L (40-150); Anion Gap 20 mmol/L (10-20); BUN (Urea Nitrogen) 42 mg/dL (8.4-25.7); Calc. Creatinine Clearance 17 mL/min (70-130); Calcium 8.9 mg/dL (7.8-10.44); Carbon Dioxide 21 mmol/L (22-29); Chloride 95 mmol/L (98-107); Estimated GFR-MDRD 10; Globulin 3.9 g/dL (2.4-3.5); Glucose 185 mg/dL (70-105); Phosphorus 3.5 mg/dL (2.3-4.7); Potassium 3.5 mmol/L (3.5-5.1); Protein, Total 6.9 g/dL (6.0-8.3); Sodium 132 mmol/L (136-145)
[2018-07-26] MEDS: HumaLOG 300 UNITS/3 ML VIAL SC PRN (06:51)
[2018-07-26 07:35] LABS: Vancomycin, Random 13.6 ug/mL (See Comment)
[2018-07-26] MEDS: hydrALAZINE 25 MG TAB PO SCH (07:57)
[2018-07-26] MEDS: Baclofen 10 MG TAB PO SCH (07:57)
[2018-07-26] MEDS: Carvedilol 25 MG TAB PO SCH (07:57)
[2018-07-26] MEDS: Gabapentin 100 MG CAP PO SCH (07:57)
[2018-07-26] MEDS: NIFEdipine XL 60 MG TAB PO SCH (07:57)
[2018-07-26] MEDS: Saccharomyces boulardii 250 MG CAP PO SCH (07:57)
[2018-07-26] MEDS: Heparin 5,000 UNITS/ML VIAL SC SCH (07:57)
--- NOTE | 2018-07-26 09:23 | PDOC.PN ---
- Subjective Encounter Start Date: 07/26/18 Encounter Start Time: 08:40 pt seen in HD room, no fever, doing well Patient seen and examined. No new complaints. No overnight events - Objective Resuscitation Status: Resuscitation Status DNR:Do Not Resuscitate MAR Reviewed: Yes Vital Signs & Weight: Vital Signs (12 hours) Temp Pulse Resp BP BP Pulse Ox 07/26/18 07:57 62 07/26/18 07:31 97.4 F L 62 16 166/85 H 92 L 07/26/18 06:09 63 16 93 L 07/26/18 05:39 61 22 H 95 07/26/18 04:00 97.7 F 57 L 20 131/73 98 07/26/18 00:32 93 L 07/26/18 00:05 64 18 93 L Weight Admit Weight 187 lb 3.2 oz Weight 185 lb 4.8 oz I&O: 07/25/18 07/26/18 07/27/18 06:59 06:59 06:59 Intake Total 500 1450 Balance 500 1450 Result Diagrams: 07/26/18 03:59 07/26/18 03:59 Additional Labs: Accuchecks 07/26/18 07/25/18 07/25/18 05:48 19:57 16:44 POC Glucose 191 H 162 H 209 H 07/25/18 11:18 POC Glucose 222 H Phys Exam - Physical Examination Constitutional: NAD HEENT: PERRLA, moist MMs, sclera anicteric Neck: no JVD, supple Respiratory: no wheezing, no rales, no rhonchi Cardiovascular: RRR, no significant murmur, no rub Gastrointestinal: soft, non-tender, no distention, positive bowel sounds Musculoskeletal: no edema, pulses present Neurological: non-focal, normal sensation, moves all 4 limbs Lymphatic: no nodes Psychiatric: normal affect Skin: no rash, normal turgor Dx/Plan (1) Intractable hiccoughs Code(s): R06.6 - HICCOUGH Status: Resolved Comment: due to uremia (2) Junctional cardiac arrhythmia Code(s): I49.8 - OTHER SPECIFIED CARDIAC ARRHYTHMIAS Status: Resolved Comment: (3) Pneumonia Code(s): J18.9 - PNEUMONIA, UNSPECIFIED ORGANISM Status: Acute Qualifiers: Laterality: bilateral Comment: (4) Uremia Code(s): N19 - UNSPECIFIED KIDNEY FAILURE Status: Resolved Comment: (5) Anxiety and depression Code(s): F41.9 - ANXIETY DISORDER, UNSPECIFIED; F32.9 - MAJOR DEPRESSIVE DISORDER, SINGLE EPISODE, UNSPECIFIED Status: Chronic Comment: Patient threatened self harm if an ambulance showed up at his home to take him to the hospital. He obviously aquiesced and came anyway. Denies suicidality. [facility] has been consulted. Will have them see him when he is medically stable. (6) ESRD on hemodialysis Code(s): N18.6 - END STAGE RENAL DISEASE; Z99.2 - DEPENDENCE ON RENAL DIALYSIS Status: Chronic (7) Hypertension Code(s): I10 - ESSENTIAL (PRIMARY) HYPERTENSION Status: Chronic Qualifiers: Hypertension type: essential hypertension Qualified Code(s): I10 - Essential (primary) hypertension Comment: home meds. 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 Review of Systems - Review of Systems ENT: negative: Ear Pain, Ear Discharge, Nose Pain, Nose Discharge, Nose Congestion, Mouth Pain, Mouth Swelling, Throat Pain, Throat Swelling, Other Respiratory: negative: Cough, Dry, Shortness of Breath, Hemoptysis, SOB with Excertion, Pleuritic Pain, Sputum, Wheezing Cardiovascular: negative: chest pain, palpitations, orthopnea, paroxysmal nocturnal dyspnea, edema, light headedness, other Gastrointestinal: negative: Nausea, Vomiting, Abdominal Pain, Diarrhea, Constipation, Melena, Hematochezia, Other Genitourinary: negative: Dysuria, Frequency, Incontinence, Hematuria, Retention , Other Musculoskeletal: negative: Neck Pain, Shoulder Pain, Arm Pain, Back Pain, Hand Pain, Leg Pain, Foot Pain, Other Skin: negative: Rash, Lesions, Desmond, Bruising, Other - Medications/Allergies Allergies/Adverse Reactions: Allergies Allergy/AdvReac Type Severity Reaction Status Date / Time No Known Allergies Allergy Verified 07/19/18 21:03 Medications: Current Medications Acetaminophen (Tylenol) 650 mg PO Q6H PRN PRN Reason: Headache/Fever or Pain Last Admin: 07/25/18 14:34 Dose: 650 mg Acetaminophen (Tylenol) 1,000 mg PO Q6H PRN PRN Reason: Moderate to Severe Pain (6-10) Last Admin: 07/22/18 21:29 Dose: 1,000 mg Acetaminophen (Tylenol) 500 mg PO HSPRN PRN PRN Reason: .SLEEP Last Admin: 07/24/18 20:17 Dose: 500 mg Albuterol/Ipratropium (Duoneb) 3 ml NEB [id number] [facility] Last Admin: 07/26/18 06:09 Dose: 3 ml Artificial Tears (Tears Naturale) 2 drop EA EYE PRN PRN PRN Reason: Dry Eyes Baclofen (Lioresal) 5 mg PO TID [facility] Last Admin: 07/26/18 07:57 Dose: Not Given Carvedilol (Coreg) 25 mg PO BID [facility] Last Admin: 07/26/18 07:57 Dose: Not Given Chlorpromazine HCl (Thorazine) 25 mg PO Q6H PRN PRN Reason: Restlessness Last Admin: 07/22/18 14:44 Dose: 25 mg Dextrose/Water (Dextrose 50%) 25 gm SLOW IVP PRN PRN PRN Reason: Hypoglycemia Diphenhydramine HCl (Benadryl) 25 mg PO HSPRN PRN PRN Reason: Insomnia Last Admin: 07/24/18 20:17 Dose: 25 mg Gabapentin (Neurontin) 100 mg PO DAILY [facility] Last Admin: 07/26/18 07:57 Dose: Not Given Glucagon (Glucagon) 1 mg IM PRN PRN PRN Reason: Hypoglycemia Guaifenesin (Robitussin Sf) 200 mg PO Q4H PRN PRN Reason: Cough Heparin Sodium (Porcine) (Heparin) 5,000 units SC TID [facility] Last Admin: 07/26/18 07:57 Dose: Not Given Hydralazine HCl (Apresoline) 100 mg PO TID [facility] Last Admin: 07/26/18 07:57 Dose: Not Given Hydralazine HCl (Apresoline) 10 mg SLOW IVP Q4H PRN PRN Reason: SBP > 180 and HR < 70 Dextrose/Water (D5w) 1,000 mls @ 0 mls/hr IV .Q0M PRN PRN Reason: Hypoglycemia Insulin Human Lispro (Humalog) 0 units SC .MILD SLIDING SCALE PRN PRN Reason: Mild Correctional Scale Last Admin: 07/26/18 06:51 Dose: 2 unit Levofloxacin (Levaquin) 500 mg PO Q2DAYS [facility] Last Admin: 07/26/18 07:56 Dose: Not Given Loperamide HCl (Imodium) 2 mg PO PRN PRN PRN Reason: Diarrhea/Loose Stools Mineral Oil/White Petrolatum (Eucerin Cream) 0 gm TOP BIDPRN PRN PRN Reason: Dry Skin Nifedipine (Procardia Xl) 60 mg PO DAILY [facility] Last Admin: 07/26/18 07:57 Dose: Not Given Hold Vancomycin For (Level >20) 0 each FS .AT DIALYSIS [facility] Ondansetron HCl (Zofran Odt) 4 mg PO Q6H PRN PRN Reason: Nausea/Vomiting Pantoprazole Sodium (Protonix) 40 mg PO HS [facility] Last Admin: 07/25/18 20:21 Dose: 40 mg Saccharomyces Boulardii (Florastor) 250 mg PO DAILY [facility] Last Admin: 07/26/18 07:57 Dose: Not Given Senna/Docusate Sodium (Senokot S) 2 tab PO BID PRN PRN Reason: Constipation Sodium Chloride (Flush - Normal Saline) 10 ml IVF Q12HR [facility] Last Admin: 07/26/18 07:58 Dose: Not Given Sodium Chloride (Flush - Normal Saline) 10 ml IVF PRN PRN PRN Reason: Saline Flush Last Admin: 07/22/18 06:11 Dose: 10 ml Throat Lozenges (Cepastat Lozenges) 1 uyen PO Q2H PRN PRN Reason: Sore Throat Tramadol HCl (Ultram) 50 mg PO Q6H PRN PRN Reason: Mild-Moderate Pain (1-5) Zolpidem Tartrate (Ambien) 5 mg PO HSPRN PRN PRN Reason: Insomnia Last Admin: 07/25/18 20:21 Dose: 5 mg
--- NOTE | 2018-07-26 10:06 | DIS ---
DATE OF ADMISSION: 07/19/2018 DATE OF DISCHARGE: 07/26/2018 PRIMARY CARE PHYSICIAN: Dr. Calderon. DISCHARGE DISPOSITION: [facility]. PRIMARY DISCHARGE DIAGNOSES: 1. Volume overload, resolved due to missed hemodialysis. 2. Uremic encephalopathy, resolved. 3. Junctional cardiac arrhythmia resolved. 4. Intractable hiccups, resolved. 5. Hyperkalemia, resolved. 6. Gastroenteritis, improved. 7. Pneumonia, community acquired, likely bacterial suspected for Streptococcus. SECONDARY DISCHARGE DIAGNOSES: End-stage renal disease on hemodialysis Sunday, Sunday, Sunday; an xiety and depression; hypertension; macrocytic anemia. PRIMARY PROCEDURE/OPERATION: None. RADIOLOGICAL INVESTIGATION: Chest x-ray on admission showed mild increased density on left. Right l unruly is clear. Echocardiography showed normal EF. CT brain was negative for any acute intracranial p rocess. SIGNIFICANT LABORATORY DATA: WBC 8.0, hemoglobin 9.3, MCV 99.5, platelet 188. INR 1.4. Sodium 132, potassium 3.5, BUN 42, creatinine 5.70, calcium 8.9. LFT normal. Stool for infection workup negati ve. Stool for guaiac negative. DISCHARGE MEDICATIONS: The patient will continue all his previous medications; Coreg 25 mg p.o. b.i. d., hydralazine 100 mg t.i.d., lisinopril 5 mg daily, Procardia-XL 60 mg p.o. daily, Actos 30 mg p.o. daily, tramadol 50 mg q.6 hourly p.r.n., Levaquin 500 mg p.o. every other day for 5 more tablets, ga bapentin 100 mg p.o. daily, Protonix 40 mg p.o. daily, Florastor 250 mg p.o. daily for 5 days, Nephro -Lamont one tablet p.o. daily. CONTRAINDICATIONS: None. CODE STATUS: DNR. INPATIENT CONSULTANTS: Dr. Bonds was following for maintenance hemodialysis. [facility]iology Group was co nsulted for junctional arrhythmia. TEST RESULTS PENDING ON DISCHARGE: None. DISCHARGE PLAN: Post hospital, the patient is discharged to [facility]. Subsequently, jerri harrison will follow up with primary care physician. HOSPITAL COURSE: A 57-year-old male with the above-mentioned medical problem who was admitted by Dr. Luevano on 07/19/2018. Please see his H&P for further details. The patient had missed hemodialysis . Patient was becoming more and more shortness of breath. He was also confused. On admission, the patient was psychotic. He also had intractable hiccup. The patient was admitted to telemetry floor where he required immediate dialysis. On admission, he had hyperkalemia that was also improved with dialysis. He had uremia symptoms that were also improved with dialysis. He had elevated troponin an d junctional arrhythmia that is why Cardiology was consulted. Echocardiography was done which showed normal EF. Patient was also empirically treated for pneumonia with vancomycin and Zosyn while in [facility]. With that, patient had significant clinical improvement and we changed to Levaquin on discha e for another 5 days. His leukocytosis is improved. His electrolytes are corrected to normal. Hi s diabetes is also well controlled. The patient's mental status is also significantly improved. Whi frank in hospital, he had diarrhea because of antibiotic versus gastroenteritis, but infection workup wa s negative and his diarrhea also improved with symptomatic treatment. Patient has physical weakness and that is why he needs more PT, OT and that is why we are considering transfer him to swing bed. With help of foster care case manager, we are sending him to [place] swing bed. I spoke with Dr. Kohler and updated about patient's condition and hospital course and he accepted thi s patient for admission. Paperwork for discharge done. Discharge medication reconciliation done. The patient is seen and exa mined at bedside today. Please see my progress note from today for further detail. Total time spent on discharge 32 minutes.
--- NOTE | 2018-07-26 12:05 | PRG ---
DATE OF SERVICE: 07/26/2018 SUBJECTIVE: A 57-year-old gentleman, being seen for end-stage renal patient. The patient denies any nausea, vomiting, or chest pain. PHYSICAL EXAMINATION: GENERAL: Patient is awake, alert. VITAL SIGNS: Afebrile, pulse 82, breathing 16, blood pressure . HEAD/NECK: Normocephalic. Atraumatic. EYES: EOMI. No deformity. EARS: Clear. No ulcers. NOSE: Intact. No lesions. MOUTH: Clear. No discharge. THROAT: Clear. No exudate. LUNGS: Clear. No crackles. CARDIAC: S1, S2. No rub. ABDOMEN: Benign. BS+. GENITALIA/RECTUM: Santamaria absent. BACK/EXTREMITIES: Edema 0+. Ulcer-. NEUROLOGICAL: Alert and motor intact. SKIN: Rash- Bruise-. LYMPHATICS: Edema-. Ulcer- LABORATORY: Hemoglobin 9.3. ASSESSMENT AND RECOMMENDATIONS: 1. Stage 6 chronic kidney disease. Continue hemodialysis. 2. Hypertension, stable. 3. Anemia, stable. 4. Medications based on glomerular filtration rate are appropriate.
[2018-07-26 14:15] VITALS: BP 171/83; TEMP 98.4
== END 2018-07-26 14:31 | disposition swing bed (61) | DRG 640 ==
LOC: ERS 12:46 → 2NO 18:40 → T4-A 07-22 14:08
PROVIDERS: ADMIT Internal Medicine; ATTEND Internal Medicine
PROC: 5A1D70Z Performance of Urinary Filtration, Intermittent, Less than 6 Hours Per Day (ICD-10-PCS; principal; 2018-07-20)
PROC: 5A1D70Z Performance of Urinary Filtration, Intermittent, Less than 6 Hours Per Day (ICD-10-PCS; 2018-07-21)
PROC: 5A1D70Z Performance of Urinary Filtration, Intermittent, Less than 6 Hours Per Day (ICD-10-PCS; 2018-07-24)
DX: E87.70 Fluid overload, unspecified (principal); A41.9 Sepsis, unspecified organism; J15.4 Pneumonia due to other streptococci; N18.6 End stage renal disease; G93.49 Other encephalopathy; I12.0 Hypertensive chronic kidney disease with stage 5 chronic kidney disease or end stage renal disease; Z91.15 Patient's noncompliance with renal dialysis; E87.2 Acidosis; F41.8 Other specified anxiety disorders; I10 Essential (primary) hypertension; E87.5 Hyperkalemia; I49.8 Other specified cardiac arrhythmias; R06.6 Hiccough; K52.9 Noninfective gastroenteritis and colitis, unspecified; D53.9 Nutritional anemia, unspecified; E11.22 Type 2 diabetes mellitus with diabetic chronic kidney disease; Z99.2 Dependence on renal dialysis; D63.1 Anemia in chronic kidney disease; E88.09 Other disorders of plasma-protein metabolism, not elsewhere classified; I25.10 Atherosclerotic heart disease of native coronary artery without angina pectoris; Z95.5 Presence of coronary angioplasty implant and graft; E11.319 Type 2 diabetes mellitus with unspecified diabetic retinopathy without macular edema; Z66 Do not resuscitate; Z86.79 Personal history of other diseases of the circulatory system
CPT/HCPCS: 36415; 36416; 70450; 71045; 71046; 80048; 80053; 80202; 82274; 82553; 83630; 83735; 84100; 84484; 85014; 85018; 85025; 85060; 85610; 85730; 86850; 86900; 86901; 87324; 87449; 90935; 93005; 93306; 94640; 96365; G0257; G8978-GP-CL; G8979-GP-CJ; G8987-GO-CL; G8988-GO-CJ; G9165-GN-CJ; G9166-GN-CI; J0456; J0696; J0744; J1644; J2543; J3370; J7050; J7620; Q0161

== ENCOUNTER → 2018-07-28 | Day surgery (SDC) | payer MEDICARE | LOC: SDC/OP 10:55 | PROVIDERS: ATTEND Internal Medicine Nephrology | DX: I12.0 Hypertensive chronic kidney disease with stage 5 chronic kidney disease or end stage renal disease (principal); E11.22 Type 2 diabetes mellitus with diabetic chronic kidney disease; N18.6 End stage renal disease; Z99.2 Dependence on renal dialysis; Z79.4 Long term (current) use of insulin; Z79.899 Other long term (current) drug therapy | CPT/HCPCS: 90935; G0257 ==

== ENCOUNTER 2020-02-03 19:30 | Outpatient (CLI) | payer MEDICARE, OTHER | END 2020-02-03 19:31 | disposition home or self-care (01) | LOC: SLEEPLAB 19:30 | PROVIDERS: ATTEND Nurse Practitioner Adult Health | DX: G47.33 Obstructive sleep apnea (adult) (pediatric) (principal); G47.10 Hypersomnia, unspecified; G47.00 Insomnia, unspecified; F32.9 Major depressive disorder, single episode, unspecified; E11.22 Type 2 diabetes mellitus with diabetic chronic kidney disease; I12.0 Hypertensive chronic kidney disease with stage 5 chronic kidney disease or end stage renal disease; N18.6 End stage renal disease | CPT/HCPCS: 95810 ==

== ENCOUNTER 2020-02-08 19:00 | Outpatient (CLI) | payer MEDICARE, OTHER | END 2020-02-08 19:01 | disposition home or self-care (01) | LOC: SLEEPLAB 19:00 | PROVIDERS: ATTEND Nurse Practitioner Adult Health | DX: G47.33 Obstructive sleep apnea (adult) (pediatric) (principal); G47.10 Hypersomnia, unspecified; I10 Essential (primary) hypertension; E11.9 Type 2 diabetes mellitus without complications; F32.9 Major depressive disorder, single episode, unspecified; G47.00 Insomnia, unspecified; G31.84 Mild cognitive impairment of uncertain or unknown etiology | CPT/HCPCS: 95811 ==

== ENCOUNTER 2020-12-01 10:19 | Observation (INO) | payer MEDICARE, OTHER ==
[2020-12-01 11:41] LABS: ALT (SGPT) 9 U/L (8-55); AST (SGOT) 12 U/L (5-34); Alkaline Phosphatase 71 U/L (40-110); Anion Gap 28 mmol/L (10-20); BUN (Urea Nitrogen) 86 mg/dL (8.4-25.7); Bilirubin, Total 0.7 mg/dL (0.2-1.2); Calc. Creatinine Clearance 0 mL/min (70-130); Calcium 9.1 mg/dL (7.8-10.44); Carbon Dioxide 18 mmol/L (23-31); Chloride 95 mmol/L (98-107); Glucose 85 mg/dL (80-115); Potassium 5.7 mmol/L (3.5-5.1); Sodium 135 mmol/L (136-145)
[2020-12-01 11:42] LABS: #Eosinphils 0.4 thou/uL (0.0-0.7); #Lymphocytes 0.9 thou/uL (1.20-3.40); #Monocytes 0.3 thou/uL (0.11-0.59); #Neutrophils 4.6 thou/uL (1.40-6.50); %Basophils 0.7 % (0.0-1.0); %Lymphocytes 14.8 % (21.0-51.0); %Monocytes 4.8 % (0.0-10.0); %Neutrophils 73.6 % (42.0-75.0); Hemoglobin 10.6 g/dL (14.0-18.0); Mean Corpuscular Hemoglobin 36.7 pg (27.0-31.0); Mean Platelet Volume 7.4 fL (7.4-10.4); Platelet Count 131 thou/uL (130-400); RBC Distribution Width 12.9 % (11.5-14.5); Red Blood Cell (RBC) Count 2.88 mill/uL (4.70-6.10); White Blood Cell (WBC) Count 6.3 thou/uL (4.8-10.8)
[2020-12-01] MEDS ORDERED: Morphine 4 MG/ML VIAL ONE (12:48)
[2020-12-01] MEDS ORDERED: Morphine 2 MG/ML VIAL ONE (17:05)
[2020-12-01] MEDS ORDERED: hydrALAZINE 20 MG/ML VIAL SLOW IVP PRN (19:08)
[2020-12-01] MEDS ORDERED: Dextrose 5% in Water 1,000 ML IV PRN (19:08)
[2020-12-01] MEDS ORDERED: Ondansetron PF 4 MG/2 ML Vial IVP PRN (19:08)
[2020-12-01] MEDS ORDERED: Ondansetron ODT 4 MG TAB PO PRN (19:08)
[2020-12-01] MEDS ORDERED: Dextrose 50% Abboject 50 ML SYRINGE SLOW IVP PRN (19:08)
[2020-12-01 19:41] LABS: Magnesium 2.4 mg/dL (1.6-2.6); Phosphorus 8.1 mg/dL (2.3-4.7)
[2020-12-01] MEDS ORDERED: Insulin Regular 300 UNITS/3 ML VIAL SC PRN ×2 (20:01)
[2020-12-01] MEDS: Acetaminophen 325 MG TAB PO SCH (20:22)
[2020-12-01] MEDS: Escitalopram Oxalate 10 mg Tablet PO SCH (20:22)
[2020-12-01] MEDS: hydrALAZINE 25 MG TAB PO SCH (20:22)
[2020-12-01] MEDS: traMADol HCl 50 MG TAB PO SCH (20:23)
[2020-12-02 00:44] VITALS: BMI 28.3
[2020-12-02] MEDS: Acetaminophen 325 MG TAB PO SCH ×5 (01:11→23:32)
[2020-12-02] MEDS: Cyclobenzaprine 10 MG TAB PO PRN ×2 (01:12→08:10)
[2020-12-02 04:41] LABS: #Eosinphils 0.4 thou/uL (0.0-0.7); #Lymphocytes 0.6 thou/uL (1.20-3.40); #Monocytes 0.3 thou/uL (0.11-0.59); #Neutrophils 2.9 thou/uL (1.40-6.50); %Basophils 0.8 % (0.0-1.0); %Eosinophils 9.4 % (0.0-10.0); %Lymphocytes 13.2 % (21.0-51.0); %Monocytes 7.4 % (0.0-10.0); %Neutrophils 69.2 % (42.0-75.0); Hemoglobin 10.1 g/dL (14.0-18.0); Mean Corpuscular HGB CONC 33.8 g/dL (32.0-36.0); Mean Corpuscular Hemoglobin 35.5 pg (27.0-31.0); Mean Platelet Volume 7.5 fL (7.4-10.4); Platelet Count 145 thou/uL (130-400); RBC Distribution Width 12.9 % (11.5-14.5); Red Blood Cell (RBC) Count 2.85 mill/uL (4.70-6.10); White Blood Cell (WBC) Count 4.2 thou/uL (4.8-10.8)
[2020-12-02 05:15] LABS: SARS-CoV-2 PCR by NAA Not Detected (NotDetected)
[2020-12-02 05:15] LABS: Anion Gap 20 mmol/L (10-20); BUN (Urea Nitrogen) 58 mg/dL (8.4-25.7); Calc. Creatinine Clearance 11 mL/min (70-130); Calcium 9.1 mg/dL (7.8-10.44); Carbon Dioxide 25 mmol/L (23-31); Chloride 97 mmol/L (98-107); Glucose 112 mg/dL (80-115); Magnesium 2.3 mg/dL (1.6-2.6); Phosphorus 7.4 mg/dL (2.3-4.7); Potassium 4.9 mmol/L (3.5-5.1); Sodium 137 mmol/L (136-145)
[2020-12-02] MEDS: traMADol HCl 50 MG TAB PO SCH ×4 (06:12→23:32)
[2020-12-02] MEDS ORDERED: Cepastat Lozenges 1 LOZ PO PRN (06:24)
[2020-12-02] MEDS: Famotidine 20 MG TAB PO SCH (08:10)
[2020-12-02] MEDS: Gabapentin 100 MG CAP PO SCH (08:10)
[2020-12-02] MEDS: hydrALAZINE 25 MG TAB PO SCH ×3 (08:37→20:11)
[2020-12-02] MEDS ORDERED: Ibuprofen 200 MG TAB PO PRN (10:19)
[2020-12-02] MEDS ORDERED: Ketorolac Tromethamine 30 MG/ML VIAL IVP SCH (10:30)
[2020-12-02] MEDS: Escitalopram Oxalate 10 mg Tablet PO SCH (20:07)
[2020-12-03] MEDS: Cyclobenzaprine 10 MG TAB PO PRN (02:18)
[2020-12-03] MEDS: Acetaminophen 325 MG TAB PO SCH ×2 (06:11→13:11)
[2020-12-03] MEDS: traMADol HCl 50 MG TAB PO SCH ×2 (06:12→13:12)
[2020-12-03] MEDS: hydrALAZINE 25 MG TAB PO SCH ×2 (09:16→15:46)
[2020-12-03] MEDS: Gabapentin 100 MG CAP PO SCH (09:17)
[2020-12-03] MEDS: Famotidine 20 MG TAB PO SCH (09:18)
[2020-12-03 15:46] VITALS: BP 141/57
[2020-12-03 15:51] VITALS: TEMP 98.1
== END 2020-12-03 17:03 ==
LOC: ERS 10:19 → SURG A 14:27 → UNDOADMIN 14:27 → INTOOBSV 19:08 → SURG A 19:08
PROVIDERS: ADMIT Surgery; ATTEND Surgery
DX: S32.592A Other specified fracture of left pubis, initial encounter for closed fracture (principal); G89.11 Acute pain due to trauma; E87.70 Fluid overload, unspecified; I12.0 Hypertensive chronic kidney disease with stage 5 chronic kidney disease or end stage renal disease; E11.22 Type 2 diabetes mellitus with diabetic chronic kidney disease; N18.6 End stage renal disease; D63.1 Anemia in chronic kidney disease; E11.319 Type 2 diabetes mellitus with unspecified diabetic retinopathy without macular edema; I45.10 Unspecified right bundle-branch block; I48.92 Unspecified atrial flutter; E87.5 Hyperkalemia; E11.10 Type 2 diabetes mellitus with ketoacidosis without coma; Z87.891 Personal history of nicotine dependence; Z79.84 Long term (current) use of oral hypoglycemic drugs; Z79.899 Other long term (current) drug therapy; Z99.2 Dependence on renal dialysis; Z20.822 Contact with and (suspected) exposure to COVID-19; W18.30XA Fall on same level, unspecified, initial encounter; Y92.096 Garden or yard of other non-institutional residence as the place of occurrence of the external cause
CPT/HCPCS: 72170; 73502; 80048; 80053; 82553; 82962 ×2; 83735 ×2; 83880; 84100 ×2; 84484; 85025 ×2; 93005; 96374; 96376; 97110; 97116; 97139 ×3; 97535; 99285; J2270; U0003; U0005; 36415; 36416; 87635; 90935; 96375; G0257; G0378; G0390; J1885